=== PATIENT | male | born 1975 | race African-American/Black ===

== ENCOUNTER 2016-11-02 00:13 | Emergency (ER) | payer OTHER ==
[2016-11-02] MEDS ORDERED: methylPREDNISolone NA SUCC 125 MG/2 ML VIAL IVPB ONE (00:47)
[2016-11-02] MEDS ORDERED: MAGNESIUM SULF 50% (8.12 MEQ/2 ML-1 GM VIAL) IVPB ONE (00:47)
[2016-11-02] MEDS ORDERED: SODIUM CHLORIDE 1,000 ML IV STA (00:47)
[2016-11-02 00:49] VITALS: BMI 27.5
[2016-11-02] MEDS ORDERED: MAGNESIUM SULF 50% (8.12 MEQ/2 ML-1 GM VIAL) ONE (00:51)
[2016-11-02] MEDS ORDERED: methylPREDNISolone NA SUCC 125 MG/2 ML VIAL ONE (00:51)
[2016-11-02] MEDS: ALBUTEROL SO4 2.5/IPRATROPIUM 0.5 INH SOL 3 ML VIAL.NEB. NEB SCH ×4 (01:07→01:45)
[2016-11-02 01:16] LABS: BASOPHIL 0.7 % (0-2.0); EOSINOPHIL 19.5 % (0-4.5); MCH 28.2 pg (25.7-33.7); MCHC 32.7 g/dl (32.0-35.9); MEAN CELL VOLUME 86.2 fl (80-96); NEUTROPHILS 40.5 % (42.8-82.8); PLATELET COUNT 274 K/MM3 (134-434); RDW 13.5 % (11.9-15.9); WHITE BLOOD COUNT 10.6 K/mm3 (4.0-10.0)
[2016-11-02] MEDS ORDERED: ALBUTEROL SO4 2.5/IPRATROPIUM 0.5 INH SOL 3 ML VIAL.NEB. NEB ONE (01:34)
[2016-11-02 01:44] LABS: ANION GAP 12 (8-16); BILIRUBIN,TOTAL 0.5 mg/dL (0.2-1.0); CO2 25 mmol/L (21-32); CREATININE 1.4 mg/dL (0.7-1.3); GLUCOSE,RANDOM 92 mg/dL (74-106); SGOT/AST 30 U/L (15-37); SGPT/ALT 34 U/L (12-78); TOT PROT 7.2 g/dl (6.4-8.2)
--- NOTE | 2016-11-02 01:46 | PDOC ---
History of Present Illness - General Chief Complaint: Asthma Stated Complaint: ASTHMA Time Seen by Provider: 11/02/16 00:38 History Source: Patient Exam Limitations: No Limitations - History of Present Illness Initial Comments: 11/02/16 01:41 41yo Male patient w/ PmHx: HTN, Asthma, PNA, Chronic Sinusitis presents to ED c/ o trouble breathing x 1 week, getting worse. Patient reports he has been taking his medications, and trying to fight off his symptoms, but it has become increasingly hard to ambulate. Patient states 2 months ago, he was admitted at a hospital in the [place] and diagnosed with PNA. Associated Thick Yellow Phlegm. Pulmonary MD- Dr. Hamilton. Timing/Duration: reports: getting worse, week Severity: reports: moderate Possible Cause: Yes: illness exposure, occasional episodes Modifying Factors: improves with: albuterol inhaler, albuterol nebulizer, rest Associated Symptoms: reports: cough, sinus infection, wheezing. denies: denies symptoms, chest pain/soreness, dizziness, earache, facial pain, fever/chills, headache, lightheadedness, muscle aches, nasal congestion, nasal drainage, shortness of breath, sore throat, other Aspirin Received prior to arrival: No: no aspirin today, unknown, 81 mg x 1, 81 mg x 2, 81 mg x 3, 81 mg x 4, 325 mg x 1, provided at home, provided by EMS, provided by ED ASA Contraindications(Core Measure): No: Allergy, Other, Active Blding w/i 24 hrs., Plavix, Receiving Warfarin Past History - Travel Traveled outside of the country in the last 30 days: No Close contact w/someone who was outside of country & ill: No - Past Medical History Allergies/Adverse Reactions: Allergies Allergy/AdvReac Type Severity Reaction Status Date / Time shellfish derived Allergy Verified 11/02/16 00:49 Home Medications: Ambulatory Orders Albuterol 0.083% Nebulizer Sanaz [Ventolin 0.083% Nebulizer Soln -] 1 neb NEB Q4H PRN #1 box 11/02/16 Albuterol Sulfate Inhaler - [Ventolin HFA Inhaler -] 1 - 2 inh PO Q4H PRN #1 inhaler 11/02/16 Amlodipine Besylate/Benazepril 10 - 20 mg PO DAILY 11/02/16 Fluticasone Prop 0.05% Nasal [Flonase -] 1 - 2 spray NS DAILY 11/02/16 Levofloxacin [Levaquin] 750 mg PO DAILY #6 tablet 11/02/16 Mometasone/Formoterol [Dulera 200 Mcg/5 Mcg Inhaler] 2 inh IH BID 11/02/16 Montelukast Na [Singulair -] 10 mg PO HS 11/02/16 Prednisone [Deltasone -] 10 mg PO ASDIR #21 tab 11/02/16 Asthma: Yes HTN: Yes - Immunization History Immunization Up to Date: No - Psycho/Social/Smoking Cessation Hx Anxiety: No Suicidal Ideation: No Smoking History: Never smoked Have you smoked in the past 12 months: No Information on smoking cessation initiated: No Hx Alcohol Use: Yes Drug/Substance Use Hx: No Substance Use Type: Alcohol Review of Systems - Review of Systems Able to Perform ROS?: Yes Is the patient limited Thai proficient: No Constitutional: No: Chills, Fever Respiratory: Yes: Cough, Shortness of Breath, Wheezing Cardiac (ROS): No: Chest Pain, Palpitations, Syncope, Chest Tightness ABD/GI: No: Constipated, Diarrhea, Nausea, Poor Appetite, Poor Fluid Intake, Vomiting, Indigestion : No: Dysuria, Flank Pain, Hematuria Musculoskeletal: No: Back Pain Neurological: No: Headache, Seizure, Tingling, Tremors, Weakness, Ataxia, Dizziness All Other Systems: Reviewed and Negative *Physical Exam - Vital Signs Last Vital Signs Temp Pulse Resp BP Pulse Ox 98.0 F 91 H 22 161/99 92 L 11/02/16 00:43 11/02/16 00:43 11/02/16 00:43 11/02/16 00:43 11/02/16 00:43 - Physical Exam General Appearance: Yes: Nourished, Appropriately Dressed, Apparent Distress, Moderate Distress HEENT: positive: EOMI, ALHAJI, Normal ENT Inspection, Normal Voice, Symmetrical, TMs Normal, Pharynx Normal. negative: Nasal Congestion, Rhinorrhea, Sinus Tenderness Neck: positive: Trachea midline, Supple. negative: Stridor, Lymphadenopathy (R) , Lymphadenopathy (L) Respiratory/Chest: positive: Labored Respiration, Wheezing. negative: Lungs Clear, Normal Breath Sounds, Respiratory Distress, Accessory Muscle Use Cardiovascular: positive: Regular Rhythm, Regular Rate Gastrointestinal/Abdominal: positive: Normal Bowel Sounds, Soft. negative: Distended, Guarding, Rebound, Tenderness Musculoskeletal: positive: Normal Inspection. 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, Fully Oriented, Alert, Normal Mood/ Affect, Normal Response, Motor Strength 10/14 ED Treatment Course - LABORATORY CBC & Chemistry Diagram: 11/02/16 01:00 11/02/16 01:00 - ADDITIONAL ORDERS Additional order review: 11/02/16 01:00 RBC 4.88 MCV 86.2 MCHC 32.7 RDW 13.5 MPV 7.0 L Neutrophils % 40.5 L Lymphocytes % 34.6 Monocytes % 4.7 Eosinophils % 19.5 H Basophils % 0.7 - RADIOLOGY Radiology Studies Ordered: Category Date Time Status CHEST PA & LAT [RAD] Stat Radiology 11/02/16 00:47 Ordered - Medications Given in the ED: ED Medications Discontinued Medications Generic Name Dose Route Start Last Admin Trade Name Freq PRN Reason Stop Dose Admin Magnesium Sulfate 2 gm 11/02/16 00:47 11/02/16 01:10 Magnesium Sulfate IVPB 11/02/16 00:48 2 gm ONCE ONE Administration Methylprednisolone Sodium Succinate 125 mg 11/02/16 00:47 11/02/16 01:07 Solu-Medrol - IVPB 11/02/16 00:48 125 mg ONCE ONE Administration Progress Note - Progress Note Progress Note: DISCHARGE O2 SAT 94%. PATIENT WOULD LIKE TO BE D/C'D TO HOME. PATIENT AND PROVIDER AGREED TO TREATMENT PLAN OVER NEXT 2 DAYS WITH AGGRESSIVE NEB TX. IF SYMPTOMS PERSIST PATIENT AGREED TO RETURN FOR ADMISSION. *DC/Admit/Observation/Transfer Diagnosis at time of Disposition: Asthma exacerbation - Discharge Dispostion Disposition: HOME Condition at time of disposition: Improved Admit: No - Prescriptions Prescriptions: Prednisone [Deltasone -] 10 mg PO ASDIR #21 tab Levofloxacin [Levaquin] 750 mg PO DAILY #6 tablet Albuterol 0.083% Nebulizer Sanaz [Ventolin 0.083% Nebulizer Soln -] 1 neb NEB Q4H PRN #1 box PRN Reason: DIFF BREATHING Albuterol Sulfate Inhaler - [Ventolin HFA Inhaler -] 1 - 2 inh PO Q4H PRN #1 inhaler PRN Reason: TROUBLE BREATHING - Referrals Referrals: STAFF,NOT ON [Primary Care Provider] - Orlin Elmore MD [Staff Physician] - - Patient Instructions Printed Discharge Instructions: Asthma -- Adult Additional Instructions: FOLLOW UP WITH DR. ELMORE (PULMONARY). CALL TO SCHEDULE APPOINTMENT ESTABLISH CARE AND FOLLOW UP. TAKE MEDICATIONS PRESCRIBED. RETURN IF YOUR SYMPTOMS WORSEN OR ANY CONCERNS FOR FURTHER EVALUATION. YOU SHOULD BE DOING NEBULIZER EVERY 4 HOURS X 2 DAYS. TAKE MEDICATIONS PRESCRIBED. NO WORK UNTIL MONDAY. IF STILL FEELING SAME ON MONDAY, RETURN TO THIS ED FOR POSSIBLE ADMISSION TO HOSPITAL. Print Language: WOLOF - Post Discharge Activity Work/School Note: Back to Work
[2016-11-02 01:57] LABS: ALK PHOS 91 U/L (45-117); TROPONIN I < 0.02 ng/ml (0.00-0.05)
--- NOTE | 2016-11-02 02:25 | PDOC ---
[id number] 92 L 11/02/16 00:43 11/02/16 00:43 11/02/16 00:43 11/02/16 00:43 11/02/16 00:43 ED Treatment Course - LABORATORY CBC & Chemistry Diagram: 11/02/16 01:00 11/02/16 01:00 - ADDITIONAL ORDERS Additional order review: Laboratory Results 11/02/16 11/02/16 01:00 01:00 Sodium 141 Potassium 4.1 Chloride 104 Carbon Dioxide 25 Anion Gap 12 BUN 14 Creatinine 1.4 H Creat Clearance w eGFR 55.58 Random Glucose 92 Calcium 9.0 Total Bilirubin 0.5 AST 30 ALT 34 Alkaline Phosphatase 91 Creatine Kinase 1086 H Creatine Kinase Index 0.3 CK-MB (CK-2) 3.647 H CK-MB (CK-2) Rel Index Cancelled Troponin I < 0.02 Total Protein 7.2 Albumin 4.0 11/02/16 01:00 RBC 4.88 MCV 86.2 MCHC 32.7 RDW 13.5 MPV 7.0 L Neutrophils % 40.5 L Lymphocytes % 34.6 Monocytes % 4.7 Eosinophils % 19.5 H Basophils % 0.7 - Medications Given in the ED: ED Medications Discontinued Medications Generic Name Dose Route Start Last Admin Trade Name Freq PRN Reason Stop Dose Admin Albuterol/Ipratropium 1 amp 11/02/16 01:00 11/02/16 01:45 Duoneb - NEB 11/02/16 01:46 1 amp Q15M OSCAR Administration Sodium Chloride 1,000 mls @ 1,000 mls/hr 11/02/16 00:47 11/02/16 01:06 Normal Saline - IV 11/02/16 01:46 1,000 mls/hr ASDIR STA Administration Magnesium Sulfate 2 gm 11/02/16 00:47 11/02/16 01:10 Magnesium Sulfate IVPB 11/02/16 00:48 2 gm ONCE ONE Administration Methylprednisolone Sodium Succinate 125 mg 11/02/16 00:47 11/02/16 01:07 Solu-Medrol - IVPB 11/02/16 00:48 125 mg ONCE ONE Administration Medical Decision Making - Medical Decision Making 11/02/16 02:25 agree with care from MISSY Miller *DC/Admit/Observation/Transfer Diagnosis at time of Disposition: Asthma exacerbation - Discharge Dispostion Disposition: HOME Condition at time of disposition: Fair - Prescriptions Prescriptions: Prednisone [Deltasone -] 10 mg PO ASDIR #21 tab Levofloxacin [Levaquin] 750 mg PO DAILY #6 tablet Albuterol 0.083% Nebulizer Sanaz [Ventolin 0.083% Nebulizer Soln -] 1 neb NEB Q4H PRN #1 box PRN Reason: DIFF BREATHING Albuterol Sulfate Inhaler - [Ventolin HFA Inhaler -] 1 - 2 inh PO Q4H PRN #1 inhaler PRN Reason: TROUBLE BREATHING - Referrals Referrals: STAFF,NOT ON [Primary Care Provider] - Orlin Elmore MD [Staff Physician] - - Patient Instructions Printed Discharge Instructions: Asthma -- Adult Additional Instructions: FOLLOW UP WITH DR. ELMORE (PULMONARY). CALL TO SCHEDULE APPOINTMENT ESTABLISH CARE AND FOLLOW UP. TAKE MEDICATIONS PRESCRIBED. RETURN IF YOUR SYMPTOMS WORSEN OR ANY CONCERNS FOR FURTHER EVALUATION. YOU SHOULD BE DOING NEBULIZER EVERY 4 HOURS X 2 DAYS. TAKE MEDICATIONS PRESCRIBED. NO WORK UNTIL MONDAY. IF STILL FEELING SAME ON MONDAY, RETURN TO THIS ED FOR POSSIBLE ADMISSION TO HOSPITAL. Print Language: CHINESE - Post Discharge Activity Work/School Note: Back to Work
[2016-11-02] MEDS ORDERED: LEVOFLOXACIN 250 MG TABLET (FP) ONE (03:14)
[2016-11-02] MEDS ORDERED: LEVOFLOXACIN 500 MG TABLET (FP) ONE (03:14)
[2016-11-02 03:23] VITALS: BP 161/91; PULSE 99; TEMP 98.2
[2016-11-02] MEDS ORDERED: LEVOFLOXACIN 750 MG TABLET PO SCH (10:00)
--- NOTE | 2016-11-02 12:48 | EKG ---
Test Reason : Blood Pressure : / mmHG Vent. Rate : 102 BPM Atrial Rate : 102 BPM P-R Int : 164 ms QRS Dur : 098 ms QT Int : 364 ms P-R-T Axes : 059 022 024 degrees QTc Int : 474 ms POOR DATA QUALITY, INTERPRETATION MAY BE ADVERSELY AFFECTED SINUS TACHYCARDIA OTHERWISE NORMAL ECG NO PREVIOUS ECGS AVAILABLE Confirmed by MARIA ISABEL HERNANDEZ MD ([id number]) on 11/02/2016 12:48:14 PM Referred By: Confirmed By:MARIA ISABEL HERNANDEZ MD
== END 2016-11-02 03:27 | disposition home or self-care (01) ==
LOC: JER 00:13
PROC: 3E0F7GC Introduction of Other Therapeutic Substance into Respiratory Tract, Via Natural or Artificial Opening (ICD-10-PCS; principal; 2016-11-02)
PROC: 3E0337Z Introduction of Electrolytic and Water Balance Substance into Peripheral Vein, Percutaneous Approach (ICD-10-PCS; 2016-11-02)
PROC: 3E0333Z Introduction of Anti-inflammatory into Peripheral Vein, Percutaneous Approach (ICD-10-PCS; 2016-11-02)
PROC: 3E033GC Introduction of Other Therapeutic Substance into Peripheral Vein, Percutaneous Approach (ICD-10-PCS; 2016-11-02)
DX: J45.901 Unspecified asthma with (acute) exacerbation (principal); I10 Essential (primary) hypertension
CPT/HCPCS: 36415; 71020-TC; 80053; 82550; 82553; 84484; 85025; 93005; 93010; 99283-25

== ENCOUNTER 2017-03-09 04:11 | Emergency (ER) | payer OTHER ==
--- NOTE | 2017-03-09 04:26 | PDOC ---
History of Present Illness - General Stated Complaint: PAIN,RT EYE/HEADACHE Time Seen by Provider: 03/09/17 04:24 - History of Present Illness Initial Comments: 41 year old male with PMH of HTN, seasonal allergies, and chronic sinusitis (s/ p sinus surgery) presenting with right sided fronto-temporal headache with right sided epiphora and rhinorrhea for the past few days. He has had sinus issues in the past 03/09/17 05:40 Past History - Past Medical History Allergies/Adverse Reactions: Allergies Allergy/AdvReac Type Severity Reaction Status Date / Time shellfish derived Allergy Verified 03/09/17 04:33 Home Medications: Ambulatory Orders Albuterol 0.083% Nebulizer Sanaz [Ventolin 0.083% Nebulizer Soln -] 1 neb NEB Q4H PRN #1 box 11/02/16 Albuterol Sulfate Inhaler - [Ventolin HFA Inhaler -] 1 - 2 inh PO Q4H PRN #1 inhaler 11/02/16 Amlodipine Besylate/Benazepril 10 - 20 mg PO DAILY 11/02/16 Fluticasone Prop 0.05% Nasal [Flonase -] 1 - 2 spray NS DAILY 11/02/16 Mometasone/Formoterol [Dulera 200 Mcg/5 Mcg Inhaler] 2 inh IH BID 11/02/16 Montelukast Na [Singulair -] 10 mg PO HS 11/02/16 Amox-Tr/K Cl [Augmentin 875-125mg Tablet -] 1 tab PO BID #14 tablet 03/09/17 Naproxen [Naprosyn -] 500 mg PO BID PRN #60 tablet MDD 2 tablets 03/09/17 Reslizumab [Cinqair] 10 mg IV MONTHLY 03/09/17 Asthma: Yes HTN: Yes - Immunization History Immunization Up to Date: No - Suicide/Smoking/Psychosocial Hx Smoking History: Never smoked Have you smoked in the past 12 months: No Hx Alcohol Use: Yes Drug/Substance Use Hx: No Substance Use Type: Alcohol *DC/Admit/Observation/Transfer Diagnosis at time of Disposition: Sinusitis, Headache - Discharge Dispostion Disposition: HOME Condition at time of disposition: Improved Admit: No - Prescriptions Prescriptions: Amox-Tr/K Cl [Augmentin 875-125mg Tablet -] 1 tab PO BID #14 tablet Naproxen [Naprosyn -] 500 mg PO BID PRN #60 tablet MDD 2 tablets PRN Reason: Headache - Patient Instructions Printed Discharge Instructions: DI for Cluster Headache, DI for Sinusitis
[2017-03-09 04:35] VITALS: BP 160/107; PULSE 86; BMI 36.9
[2017-03-09] MEDS ORDERED: KETOROLAC TROMETHAMINE 60 MG/2 ML VIAL IM ONE (04:40)
[2017-03-09] MEDS ORDERED: KETOROLAC TROMETHAMINE 60 MG/2 ML VIAL ONE (04:47)
[2017-03-09] MEDS ORDERED: AMOX TR/POT CLAV 875MG/125MG TABLETS (FP) PO ONE (05:39)
[2017-03-09] MEDS ORDERED: AMOX TR/POT CLAV 875MG/125MG TABLETS (FP) ONE (05:48)
--- NOTE | 2017-03-09 06:17 | PDOC ---
Attending Attestation - Resident Resident Name: Kimberly Eng - ED Attending Attestation I have performed the following: I have examined & evaluated the patient, The case was reviewed & discussed with the resident, I agree w/resident's findings & plan, Exceptions are as noted - HPI HPI: 03/09/17 06:15 Headache for the last several days. H/o HTN and chronic sinusitis - Physicial Exam PE: 03/09/17 06:16 *Physical Exam General Appearance: Yes: Appropriately Dressed. No: Apparent Distress, Intoxicated HEENT: positive: EOMI, ALHAJI, Normal ENT Inspection, Normal Voice, TMs Normal, Pharynx Normal. negative: Pale Conjunctivae, Photophobia, Scleral Icterus (R), Scleral Icterus (L) Neck: positive: Trachea midline, Normal Thyroid, Supple. negative: Tender, Rigid, Carotid bruit, Stridor, Lymphadenopathy (R), Lymphadenopathy (L), Thyromegaly Respiratory/Chest: positive: Lungs Clear, Normal Breath Sounds. negative: Chest Tender, Respiratory Distress, Accessory Muscle Use, Labored Respiration, RES, Crackles, Rales, Rhonchi, Stridor, Wheezing, Dullness Cardiovascular: positive: Regular Rhythm, Regular Rate, S1, S2. negative: Edema , JVD, Murmur, Bradycardia, Tachycardia Vascular Pulses: Dorsalis-Pedis (R): 2+, Doralis-Pedis (L): 2+ Gastrointestinal/Abdominal: positive: Normal Bowel Sounds, Flat, Soft. negative : Tender, Organomegaly, Pulsatile Mass, Increased Bowel Sounds, Decreased BS, Distended, Guarding, Rebound, Hernia, Hepatomegaly, Spleenomegaly Lymphatic: negative: Adenopathy, Tenderness Musculoskeletal: positive: Normal Inspection. negative: CVA Tenderness, Decreased Range of Motion Extremity: positive: Normal Capillary Refill, Normal Inspection, Normal Range of Motion, Pelvis Stable. negative: Tender, Pedal Edema, Swelling, Erythema Integumentary: positive: Normal Color, Dry, Warm. 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 negative: EOM Palsy, Facial Droop, Sensory Deficit - Medical Decision Making 03/09/17 06:16 Ct scan of head showed chronic sinusitis. Pt given ABx and discharged
== END 2017-03-09 06:18 | disposition home or self-care (01) ==
LOC: JER 04:11
PROC: 3E0233Z Introduction of Anti-inflammatory into Muscle, Percutaneous Approach (ICD-10-PCS; principal; 2017-03-09)
DX: J32.9 Chronic sinusitis, unspecified (principal); R51 Headache; I10 Essential (primary) hypertension; J45.909 Unspecified asthma, uncomplicated
CPT/HCPCS: 70450-TC; 99281-25; 99282-25

== ENCOUNTER 2017-03-10 02:57 | Emergency (ER) | payer OTHER ==
[2017-03-10 03:05] VITALS: BP 148/80; PULSE 80; TEMP 98.6; BMI 36.9
--- NOTE | 2017-03-10 03:14 | PDOC ---
History of Present Illness - General History Source: Patient Exam Limitations: No Limitations - History of Present Illness Initial Comments: 03/10/17 03:34 The patient is a 41 year old male, with a significant past medical history of hypertension, asthma, seasonal allergies, nasal polyps, and chronic sinusitis(s/ p sinus surgery) who presents to the emergency department complaining of pain and swelling of the right eye since yesterday. The patient reports his symptoms initially began as a right sided headache 3 days ago. The patient reports presenting to the ED yesterday morning, where he had a head CT done, which revealed chronic sinusitis. The patient reports he was discharged on Augmentin 875 BID and Naproxen 500 BID prn. Patient reports around 15:00 yesterday, he noted a worsening right sided headache and right eye pain. Simultaneously he noted increased swelling and tearing at the right eye. He denies any trauma, changes in vision, fever, chills, or dizziness. The patient denies any recent travel or sick contacts. Allergies: NKDA Past Surgical History: Sinus surgery Social History: ETOH use. Nonsmoker. No recreational drug use. <Shani Fitzgerald - Last Filed: 03/10/17 03:34> - General History Source: Patient <Huber Patricia - Last Filed: 03/10/17 03:44> - General Chief Complaint: Eye Problem Stated Complaint: PAIN/SWELLING RT EYE Time Seen by Provider: 03/10/17 03:09 Past History <Shani Fitzgerald - Last Filed: 03/10/17 03:34> - Past Medical History Asthma: Yes HTN: Yes - Immunization History Immunization Up to Date: No - Suicide/Smoking/Psychosocial Hx Smoking History: Never smoked Have you smoked in the past 12 months: No Information on smoking cessation initiated: No Hx Alcohol Use: No Drug/Substance Use Hx: No Substance Use Type: Alcohol <Huber Patricia - Last Filed: 03/10/17 03:44> - Past Medical History Allergies/Adverse Reactions: Allergies Allergy/AdvReac Type Severity Reaction Status Date / Time shellfish derived Allergy Verified 03/10/17 03:02 Home Medications: Ambulatory Orders Albuterol 0.083% Nebulizer Sanaz [Ventolin 0.083% Nebulizer Soln -] 1 neb NEB Q4H PRN #1 box 11/02/16 Albuterol Sulfate Inhaler - [Ventolin HFA Inhaler -] 1 - 2 inh PO Q4H PRN #1 inhaler 11/02/16 Amlodipine Besylate/Benazepril 10 - 20 mg PO DAILY 11/02/16 Fluticasone Prop 0.05% Nasal [Flonase -] 1 - 2 spray NS DAILY 11/02/16 Mometasone/Formoterol [Dulera 200 Mcg/5 Mcg Inhaler] 2 inh IH BID 11/02/16 Montelukast Na [Singulair -] 10 mg PO HS 11/02/16 Amox-Tr/K Cl [Augmentin 875-125mg Tablet -] 1 tab PO BID #14 tablet 03/09/17 Naproxen [Naprosyn -] 500 mg PO BID PRN #60 tablet MDD 2 tablets 03/09/17 Reslizumab [Cinqair] 10 mg IV MONTHLY 03/09/17 Meclizine HCl 25 mg PO TID #30 tablet 03/10/17 Oxycodone HCl/Acetaminophen [Percocet 5-325 mg Tablet] 1 - 2 tab PO Q6H #20 tablet MDD 4 03/10/17 Review of Systems - Review of Systems Able to Perform ROS?: Yes Comments:: 03/10/17 03:34 CONSTITUTIONAL: Absent: fever, no chills, no fatigue EYES: Present: right eye pain/swelling/tearing. Absent: visual changes ENT: Absent: ear pain, no sore throat CARDIOVASCULAR: Absent: chest pain, no palpitations RESPIRATORY: Absent: cough, no SOB GI: Absent: abdominal pain, no nausea, no vomiting, no constipation, no diarrhea GENITOURINARY: Absent: dysuria, no frequency, no hematuria MUSCULOSKELETAL: Absent: back pain, no arthralgia, no myalgia SKIN: Absent: rash NEURO: Present: Right-sided headache <Fitzgerald,Giomilsy - Last Filed: 03/10/17 03:34> *Physical Exam - Vital Signs Last Vital Signs Temp Pulse Resp BP Pulse Ox 98.6 F 80 14 148/80 97 03/10/17 03:03 03/10/17 03:03 03/10/17 03:03 03/10/17 03:03 03/10/17 03:03 - Physical Exam Comments: 03/10/17 03:35 GENERAL: Well-appearing, well-nourished. No apparent distress. HEENT: Tearing in the right eye. Normocephalic, atraumatic. PERRL, EOM intact. Moist mucous membranes. CARDIOVASCULAR: Normal S1, S2. Regular rate and rhythm. PULMONARY: Clear to auscultation bilaterally. ABDOMEN: Soft, non-distended, non-tender. EXTREMITIES: Normal ROM in all four extremities. No gross deformities. SKIN: Warm, dry. No rash NEUROLOGICAL: No focal neurological deficits. <Shani Fitzgerald - Last Filed: 03/10/17 03:34> - Vital Signs Last Vital Signs Temp Pulse Resp BP Pulse Ox 98.6 F 80 14 148/80 97 03/10/17 03:03 03/10/17 03:03 03/10/17 03:03 03/10/17 03:03 03/10/17 03:03 <Huber Patricia - Last Filed: 03/10/17 03:44> Medical Decision Making - Medical Decision Making 03/10/17 03:44 Dr. Patricia: The scribe's documentation has been prepared under my direction and personally reviewed by me in its entirery. I confirm that the note above accurately reflects all work, treatment, procedures, and medical decision making performed by me. <Huber Patricia - Last Filed: 03/10/17 03:44> *DC/Admit/Observation/Transfer - Attestations Scribe Attestion: 03/10/17 03:35 Documentation prepared by Shani Fitzgerald, acting as director medical affairs for Huber Patricia DO. <Shani Fitzgerald - Last Filed: 03/10/17 03:34> - Discharge Dispostion Admit: No <Huber Patricia - Last Filed: 03/10/17 03:44> Diagnosis at time of Disposition: Pain, eye, right Sinusitis Qualifiers: Sinusitis location: pansinusitis Chronicity: chronic Qualified Code(s): J32.4 - Chronic pansinusitis - Discharge Dispostion Disposition: HOME Condition at time of disposition: Stable - Prescriptions Prescriptions: Meclizine HCl 25 mg PO TID #30 tablet Oxycodone HCl/Acetaminophen [Percocet 5-325 mg Tablet] 1 - 2 tab PO Q6H #20 tablet MDD 4 - Referrals Referrals: Juan Zamorano MD [Staff Physician] - - Patient Instructions Printed Discharge Instructions: DI for Eye Pain, DI for Sinusitis Additional Instructions: Please follow up with your doctor and/or the doctor referred to you here in the ER. Continue taking the previously prescribed medication and the newly prescribed. - Post Discharge Activity Forms/Work/School Notes: Back to Work
[2017-03-10] MEDS ORDERED: MECLIZINE HCL 25 MG TABLET (FP) PO STA (03:37)
[2017-03-10] MEDS ORDERED: MECLIZINE HCL 25 MG TABLET (FP) ONE (03:52)
== END 2017-03-10 03:59 | disposition home or self-care (01) ==
LOC: JER 02:57
PROC: 3E0333Z Introduction of Anti-inflammatory into Peripheral Vein, Percutaneous Approach (ICD-10-PCS; principal; 2017-03-10)
DX: J01.81 Other acute recurrent sinusitis (principal); R51 Headache
CPT/HCPCS: 99281-25

== ENCOUNTER 2018-03-17 16:17 | Inpatient (IN) | payer OTHER ==
[2018-03-17 16:27] VITALS: BMI 38.0
--- NOTE | 2018-03-17 16:50 | PDOC ---
History of Present Illness - General Chief Complaint: Chest Pain Stated Complaint: CHEST PAIN, SOB Time Seen by Provider: 03/17/18 16:28 History Source: Patient Exam Limitations: No Limitations - History of Present Illness Initial Comments: 42 yo M with a significant past medical history of ASHLEY, hypertension, asthma, seasonal allergies, nasal polyps, and chronic sinusitis(s/p sinus surgery) who presents to the emergency department with 2 days of on and off Left sided chest pain with associated radiation down his left arm associated with diaphoresis. He reports that he gets occasional episodes of palpitations, his heart races, and feels irregular. He denies any nausea or vomiting. He also reports shortness of breath with exertion for the past 2 weeks. Also reports occasional leg swelling, in past more when he was taking amlodipine. Denies any recent fevers, chills or infections, prior heart attacks, headache, back pain, abdominal pain, or leg pain. PCP: Dr. Eleazar Tavares Social hx: denies cigarette, alcohol, or illicit drug usage. Allergies: Shellfish, NKDA Past History - Past Medical History Allergies/Adverse Reactions: Allergies Allergy/AdvReac Type Severity Reaction Status Date / Time shellfish derived Allergy Verified 03/17/18 16:23 Home Medications: Ambulatory Orders Albuterol Sulfate Inhaler - [Ventolin HFA Inhaler -] 1 - 2 inh PO Q4H PRN #1 inhaler 11/02/16 Fluticasone Prop 0.05% Nasal [Flonase -] 1 - 2 spray NS DAILY 11/02/16 Mometasone/Formoterol [Dulera 200 Mcg/5 Mcg Inhaler] 2 inh IH BID 11/02/16 Montelukast Na [Singulair -] 10 mg PO HS 11/02/16 Reslizumab [Cinqair] 10 mg IV MONTHLY 03/09/17 Amlodipine Besylate [Norvasc -] 5 mg PO DAILY 03/17/18 Chlorthalidone 25 mg PO DAILY 03/17/18 Asthma: Yes COPD: No HTN: Yes - Immunization History Immunization Up to Date: No - Suicide/Smoking/Psychosocial Hx Smoking History: Never smoked Have you smoked in the past 12 months: No Hx Alcohol Use: No Drug/Substance Use Hx: No Substance Use Type: Alcohol Review of Systems - Review of Systems Able to Perform ROS?: Yes Is the patient limited Tajik proficient: No Constitutional: Yes: Diaphoresis, Weakness. No: Chills, Fever HEENTM: No: Blurred Vision, Recent change in vision, Nose Congestion Respiratory: Yes: Shortness of Breath, SOB with Exertion, Wheezing. No: Cough, Orthopnea, Productive cough Cardiac (ROS): Yes: Chest Pain, Edema, Irregular Heart Rate, Palpitations, Chest Tightness. No: Lightheadedness, Syncope ABD/GI: No: Abdominal Distended, Constipated, Diarrhea, Nausea, Poor Fluid Intake, Vomiting : No: Burning, Dysuria, Frequency, Urgency Musculoskeletal: No: Back Pain, Neck Pain Integumentary: No: Bruising, Dryness, Rash Neurological: Yes: Headache. No: Numbness, Paresthesia, Tingling, Unsteady Gait , Dizziness Psychiatric: No: Anxiety, Depression, Sleep Pattern Change Endocrine: No: Excessive Sweating, Intolerance to Cold, Intolerance to Heat Hematologic/Lymphatic: No: Anemia, Blood Clots, Easy Bruising, Bleeding Diathesis *Physical Exam - Vital Signs Last Vital Signs Temp Pulse Resp BP Pulse Ox 98.5 F 86 18 167/96 96 03/17/18 16:23 03/17/18 16:23 03/17/18 16:23 03/17/18 16:23 03/17/18 16:23 - Physical Exam General Appearance: Yes: Nourished, Appropriately Dressed. No: Apparent Distress HEENT: positive: EOMI, ALHAJI, Normal ENT Inspection, Normal Voice, Pharynx Normal. negative: Pale Conjunctivae, Nasal Congestion Neck: positive: Trachea midline, Rigid, Supple. negative: Carotid bruit, Lymphadenopathy (R), Lymphadenopathy (L) Respiratory/Chest: positive: Lungs Clear, Normal Breath Sounds. negative: Respiratory Distress, Crackles, Rales Cardiovascular: positive: Regular Rhythm, Regular Rate, S1, S2, Edema. negative : JVD, Murmur Vascular Pulses: Dorsalis-Pedis (R): 2+, Doralis-Pedis (L): 2+ Gastrointestinal/Abdominal: positive: Normal Bowel Sounds, Soft. negative: Guarding, Rebound Lymphatic: negative: Adenopathy Musculoskeletal: positive: Normal Inspection. negative: CVA Tenderness, Decreased Range of Motion, Vertebral Tenderness Extremity: positive: Normal Capillary Refill, Normal Inspection, Normal Range of Motion Integumentary: positive: Normal Color, Dry, Warm. negative: Jaundice, Pale, Diaphoresis Neurologic: positive: urologist physician II-XII NML intact, Fully Oriented, Alert, Normal Mood/ Affect, Normal Response Heart Score/ECG Review - History History: Highly suspicious - Electrocardiogram EKG: Normal - Age Age: </= 45 - Risk Factors Risk Factors Heart Score: No Hx Hypercholesterolemia, Yes Hx Hypertension, No Smoking History, No Positive family hx of cardiac disease, Yes Hx Obesity Based on the list above the patient has:: >/=3 risk factors or Hx atherosclerotic disease - Troponin Troponin: </= normal limit - Score Heart Score - Total: 4 - ECG Intrepretation Rhythm: Regular Rhythm - [place]: Normal - ST and T Non Specific ST-T Wave changes: Yes - ECG Impressions Non-specific ST Elevation: No ED Treatment Course - LABORATORY CBC & Chemistry Diagram: 03/17/18 17:17 03/17/18 17:17 - ADDITIONAL ORDERS Additional order review: Laboratory Results 03/17/18 17:17 Sodium 139 Potassium 3.5 Chloride 103 Carbon Dioxide 31 Anion Gap 6 L BUN 19 H Creatinine 1.4 H Creat Clearance w eGFR 55.31 Random Glucose 102 Calcium 9.2 Total Bilirubin 0.3 AST 36 ALT 39 Alkaline Phosphatase 74 Creatine Kinase 1037 H Troponin I < 0.02 B-Natriuretic Peptide < 5.0 L Total Protein 7.5 Albumin 3.9 03/17/18 17:17 RBC 4.81 MCV 85.0 MCHC 33.9 RDW 13.5 MPV 7.0 L Neutrophils % 40.2 L Lymphocytes % 48.4 H D Monocytes % 9.0 D Eosinophils % 0.9 D Basophils % 1.5 - RADIOLOGY Radiology Studies Ordered: Category Date Time Status CHEST PA & LAT [RAD] Stat Radiology 03/17/18 16:53 Ordered Medical Decision Making - Medical Decision Making 42 yo M with a significant past medical history of ASHLEY, hypertension, asthma, seasonal allergies, nasal polyps, and chronic sinusitis(s/p sinus surgery) who presents to the emergency department with 2 days of on and off Left sided chest pain with associated radiation down his left arm associated with diaphoresis. He reports that he gets occasional episodes of palpitations, his heart races, and feels irregular. He denies any nausea or vomiting. He also reports shortness of breath with exertion for the past 2 weeks. HEART Score: minimum 4 w/o trop. pending Trop DD includes but not limited to: ACS, unstable/stable angina, dissection, Pneumothorax, PNA, MSK pain. Plan: Ekg, cbc, cmp, bnp, trop, vbg, cxr, bedside echo, re-assess. EKG shows normal sinus rhythm and non-specific T wave abnormality. No gross changes compared to prior EKG from 2017. Bedside echo showed no obvious hypokinetic pederson. No pericardial effusion appreciated. Labs unremarkable. - trop negative - HEART score 4 - Will obtain 2nd Trop Consulted Dr. Tinoco in cardiology. He agrees the story is very suspicious and the patient should be admitted to inpatient telemetry. *DC/Admit/Observation/Transfer Diagnosis at time of Disposition: Stable angina pectoris - Discharge Dispostion Condition at time of disposition: Guarded Decision to Admit order: Yes Decision to Admit order Date/Time: Decision to Admit Order Category Date Time Status Decision to Admit to Hospital Routine Admission 03/17/18 18:15 Active - Referrals - Patient Instructions - Post Discharge Activity
[2018-03-17 17:23] LABS: BASO % 1.5 % (0-2.0); EOS % 0.9 % (0-4.5); HEMATOCRIT 40.9 % (35.4-49); HEMOGLOBIN 13.9 GM/dL (11.7-16.9); LYMPH % 48.4 % (8-40); MCH 28.8 pg (25.7-33.7); MCHC 33.9 g/dl (32.0-35.9); NEUT % 40.2 % (42.8-82.8); PLATELET COUNT 345 K/MM3 (134-434); RBC 4.81 M/mm3 (4.00-5.60); RDW 13.5 % (11.9-15.9); WHITE BLOOD COUNT 7.3 K/mm3 (4.0-10.0)
[2018-03-17 18:01] LABS: ALBUMIN 3.9 g/dl (3.4-5.0); ALK PHOS 74 U/L (45-117); ANION GAP 6 MMOL/L (8-16); BILIRUBIN,TOTAL 0.3 mg/dL (0.2-1); BLOOD UREA NITROGEN 19 mg/dL (7-18); CALCIUM 9.2 mg/dL (8.5-10.1); CHLORIDE 103 mmol/L (98-107); CO2 31 mmol/L (21-32); CREATININE 1.4 mg/dL (0.55-1.3); GLUCOSE,RANDOM 102 mg/dL (74-106); N-TERMINAL BNP < 5.0 pg/ml (5-125); POTASSIUM 3.5 mmol/L (3.5-5.1); SGOT/AST 36 U/L (15-37); SGPT/ALT 39 U/L (13-61); SODIUM 139 mmol/L (136-145); TOT PROT 7.5 g/dl (6.4-8.2)
--- NOTE | 2018-03-17 19:11 | PDOC ---
Attending Attestation - Resident Resident Name: Sukumar Head - ED Attending Attestation I have performed the following: I have examined & evaluated the patient, The case was reviewed & discussed with the resident, I agree w/resident's findings & plan, Exceptions are as noted - HPI HPI: 03/17/18 19:06 42-year-old male history of hypertension here today complaining of chest pain. Patient describes intermittent chest pain which is sharp intermittent radiating to his left shoulder he does have associated diaphoresis. Patient has obstructive sleep apnea feeling for a short of breath walking short distances anywhere from 1-2 blocks. Did recently go on a cruise but denies any history of prolonged immobilizations includes long flights. No history of PE or DVT no fevers chills or cough no leg swelling denies family history of heart disease however his father had a stroke in his 50s. Patient has not had any previous cardiac workup currently does not have any chest pain - Physicial Exam PE: 03/17/18 19:09 Awake alert no acute distress lungs are clear bilaterally heart is regular without any murmurs rubs or gallops abdomen is soft and nontender skin is warm and dry. Extremities are warm and well-perfused there is no noted edema pulses are symmetric bilaterally. Neurologically patient is alert and oriented 3 - Medical Decision Making 03/17/18 19:10 Differential diagnosis includes angina, pericarditis, pneumonia, other lung process, patient does not currently have any risk factors for PE plan focus ED ultrasound limited of the heart will obtain an EKG patient aspirin chest x-ray labs including troponin, CBC and CMP. Patient has a high risk story and family history of vascular disease with a father with a stroke and young age therefore will likely admit patient to telemetry. Will discuss cardiology actively This ED ultrasound TTE performed, indication chest pain. Parasternal long short E couple and subxiphoid views were obtained patient overall had good contractility. No pericardial effusion was noted. No RV dilation or strain pattern noted. Impression: Normal TTE Heart Score/ECG Review #1 General ECG Interpretation: Sinus Rhythm, Normal Rate (88), Normal Intervals, No acute ischemic changes Compared to previous ECG there are: Other (no acute change comparison 11/02/16)
[2018-03-17] MEDS ORDERED: ASPIRIN 325 MG TABLET PO ONE (19:13)
[2018-03-17] MEDS ORDERED: ASPIRIN 325 MG TABLET ONE (19:17)
[2018-03-17] MEDS ORDERED: ALBUTEROL SO4 8 GM HFA INHALER IH PRN ×4 (19:46→19:55)
--- NOTE | 2018-03-17 19:47 | PN ---
Teaching Attending Note Name of Resident: Alan Cramer ATTENDING PHYSICIAN STATEMENT I saw and evaluated the patient. I reviewed the resident's note and discussed the case with the resident. I agree with the resident's findings and plan as documented. SUBJECTIVE: Patient is a 42 year old man with a PMH of ASHLEY, hypertension, asthma, seasonal allergies, nasal polyps, and chronic sinusitis(s/p sinus surgery) who presents to the ER with 2 days of on and off Left sided chest pain with associated radiation down his left arm associated with diaphoresis. He reports that he gets occasional episodes of palpitations, his heart races, and feels irregular. He denies any nausea or vomiting. He also reports shortness of breath with exertion for the past 2 weeks. 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 Also reports occasional leg swelling, in past more when he was taking amlodipine. Denies any recent fevers, chills or infections, prior heart attacks, headache, back pain, abdominal pain, or leg pain. OBJECTIVE: Alert Vital Signs Period Temp Pulse Resp BP Sys/Ramirez Pulse Ox Last 24 Hr 98.3 F-98.5 F 64-86 18-18 137-167/83-96 96-98 HEENT: No Jaundice, eye redness or discharge, PERRLA, EOMI. Normocephalic, atraumatic. External ears are normal and hearing is grossly intact. No nasal discharge. Neck: Supple, nontender. No palpable adenopathy or thyromegaly. No JVD Chest: Good effort. Clear to auscultation and percussion. Heart: Regular. No S3, rub or murmur Abdomen: Not distended, soft, nontender and no HSM. No rebound or guarding. Normoactive bowel sounds. Ext: Peripheral pulses intact. No leg edema. Skin: Warm and dry. No petechiae, rash or ecchymosis. Neuro: Alert. Oriented x3. CN 2-12 grossly intact. Sensation grossly intact in all four extremities and DTR are symmetric. Home Medications Medication Instructions Recorded Albuterol Sulfate Inhaler - 1 - 2 inh PO Q4H PRN #1 inhaler 11/02/16 [Ventolin HFA Inhaler -] Fluticasone Prop 0.05% Nasal 1 - 2 spray NS DAILY 11/02/16 [Flonase -] Mometasone/Formoterol [Dulera 200 2 inh IH BID 11/02/16 Mcg/5 Mcg Inhaler] Montelukast Na [Singulair -] 10 mg PO HS 11/02/16 Reslizumab [Cinqair] 10 mg IV MONTHLY 03/09/17 Amlodipine Besylate [Norvasc -] 5 mg PO DAILY 03/17/18 Chlorthalidone 25 mg PO DAILY 03/17/18 Abnormal Lab Results 03/17/18 03/17/18 17:17 17:17 MPV 7.0 L Neutrophils % 40.2 L Lymphocytes % 48.4 H D Anion Gap 6 L BUN 19 H Creatinine 1.4 H Creatine Kinase 1037 H CK-MB (CK-2) 4.3 H B-Natriuretic Peptide < 5.0 L ASSESSMENT AND PLAN: 1. Chest pain - Has risk factors for CAD. No changes of ACS on EKG and troponin is negative and no acute pathology on CXR. Admit to telemetry to rule out ACS, give aspirin, get ECHO, fasting lipids and adjust his BP medications to attain normotension. 2. JORDAN? - Based on his weight, serum creatinine of 1.4 mg/dL may be "normal" for him, but since he has multiple risk factors for kidney disease, a basic nephrologic work up is needed. No obvious etiology for rhabdomyolysis. Get UA and kidney sonogram. Avoid nephrotoxic agents such as NSAIDS, aminoglycosides, contrast dyes and certain Alternative medicine products. Encourage liberal oral fluid intake to correct any underlying dehydration and rhabdomyolysis and trend CPK. Would withhold aggressive IV fluids for now pending ECHO. Urine toxicology. 3. Obesity - Will provide patient all the necessary assistance, counseling and positive reinforcement to facilitate weight loss. Consult power equipment mechanics instructor. 4. DVT prophylaxis - Heparin 5000u sq tid. 5. Advance directives - Full code
--- NOTE | 2018-03-17 19:51 | HP ---
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 He then started to develop left sided chest pain which evetually radiated down the left are. No radiation to the jaw. He also started to become diaphoretic. He went home to relax that night and since his first episode he has been having these episodes multiple times. He decided he was going to work the rest of his work week and then come to the hospital for evaluation, which is what he did. He states all his symptoms, SOB, Palpitations, dyspnea on exertion, diaphoresis and chest pain all happen irrespective of each other. These symptoms happen randomly and are not necessarily always associated with each other. Currently he is comfortbale and aymptomatic but he endorses that if he was to exert himself he would likely get short of breath and/or have chest pain. Patient denies having a cardiac history other than HTN. He has a strong family history. His father in his 50's from a stroke and his uncle from a stroke in his 60's. His mother had HTN. He denies nausea, vomiting, fever chills, lower extremity edema, numbness or tingling, GI or symptoms. Patient endorses he took his BP at one point at home and it was 166/100 with a HR of 110. ER course was notable for: (1)EKG CXR (2)Labs, Aspirin (3)Bedside Echo done by Dr. Bryson not impressive for any wall motion abnormalities Recent Travel:Denies PAST MEDICAL HISTORY:As above PAST SURGICAL HISTORY:Nasal polypectomy x2 Social History: Smoking:Denies Alcohol:Denies Drugs: Denies Family History:Mother and father both had HTN. Father in 50's from stroke. Uncle in 60's from stroke Allergies Multiple allergens shellfish derived Allergy (Verified 10/06/18 16:23) HOME MEDICATIONS:Verified by Dr. Cramer with patient on pharmacy Application on Phone Home Medications Medication Instructions Recorded Albuterol Sulfate Inhaler - 1 - 2 inh PO Q4H PRN #1 inhaler 11/02/16 [Ventolin HFA Inhaler -] Fluticasone Prop 0.05% Nasal 1 - 2 spray NS DAILY 11/02/16 [Flonase -] Mometasone/Formoterol [Dulera 200 2 inh IH BID 11/02/16 Mcg/5 Mcg Inhaler] Montelukast Na [Singulair -] 10 mg PO HS 11/02/16 Reslizumab [Cinqair] 10 mg IV MONTHLY 03/09/17 Amlodipine Besylate [Norvasc -] 5 mg PO DAILY 03/17/18 Azelastine HCl 2 sprays NS BID 03/17/18 Budesonide [Pulmicort 0.5 mg 1 neb NEB BID 03/17/18 Nebulizer -] Chlorthalidone 25 mg PO DAILY 03/17/18 REVIEW OF SYSTEMS CONSTITUTIONAL: Absent: fever, chills, generalized weakness, malaise, loss of appetite, weight change Present:diaphoresis HEENT: Absent: rhinorrhea, nasal congestion, throat pain, throat swelling, difficulty swallowing, mouth swelling, ear pain, eye pain, visual changes CARDIOVASCULAR: Absent: syncope, lightheadedness, peripheral edema Present: chest pain, palpitations, irregular heart rate RESPIRATORY: Absent: cough, orthopnea, wheezing, stridor, hemoptysis Present: shortness of breath, dyspnea with exertion GASTROINTESTINAL: Absent: abdominal pain, abdominal distension, nausea, vomiting, diarrhea, constipation, melena, hematochezia GENITOURINARY: Absent: dysuria, frequency, urgency, hesitancy, hematuria, flank pain, genital pain MUSCULOSKELETAL: Absent: myalgia, arthralgia, joint swelling, back pain, neck pain SKIN: Absent: rash, itching, pallor HEMATOLOGIC/IMMUNOLOGIC: Absent: easy bleeding, easy bruising, lymphadenopathy, frequent infections ENDOCRINE: Absent: unexplained weight gain, unexplained weight loss, heat intolerance, cold intolerance NEUROLOGIC: Absent: headache, focal weakness or paresthesias, dizziness, unsteady gait, seizure, mental status changes, bladder or bowel incontinence PSYCHIATRIC: Absent: anxiety, depression, suicidal or homicidal ideation, hallucinations. PHYSICAL EXAMINATION Vital Signs - 24 hr 03/17/18 03/17/18 16:23 19:35 Temperature 98.5 F 98.3 F Pulse Rate 86 Pulse Rate [ 64 Apical] Respiratory 18 18 Rate Blood Pressure 167/96 Blood Pressure 137/83 [Right Arm] O2 Sat by Pulse 96 98 Oximetry (%) GENERAL: Awake, alert, and fully oriented, in no acute distress. HEAD: Normal with no signs of trauma. EYES: Pupils equal, round and reactive to light, extraocular movements intact, sclera anicteric, conjunctiva clear. EARS, NOSE, THROAT: Ears normal, nares patent, oropharynx clear without exudates. Moist mucous membranes. NECK: Normal range of motion, supple without lymphadenopathy, JVD, or masses. LUNGS: Breath sounds equal, clear to auscultation bilaterally. No wheezes, and no crackles. No accessory muscle use. HEART: Regular rate and rhythm, normal S1 and S2 without murmur, rub or gallop. ABDOMEN: Soft, obese, nontender, not distended, normoactive bowel sounds, no guarding, no rebound, no masses. MUSCULOSKELETAL: Normal range of motion at all joints. No bony deformities or tenderness. No CVA tenderness. UPPER EXTREMITIES: warm, well-perfused. No peripheral edema. LOWER EXTREMITIES: warm, well-perfused. No calf tenderness. No peripheral edema. NEUROLOGICAL: Cranial nerves II-XII intact. Normal speech. PSYCHIATRIC: Cooperative. Good eye contact. Appropriate mood and affect. SKIN: Warm, dry, normal turgor, no rashes or lesions noted, normal capillary refill. Laboratory Results - last 24 hr 03/17/18 03/17/18 17:17 17:17 WBC 7.3 RBC 4.81 Hgb 13.9 Hct 40.9 MCV 85.0 MCH 28.8 MCHC 33.9 RDW 13.5 Plt Count 345 D MPV 7.0 L Absolute Neuts (auto) 2.9 Neutrophils % 40.2 L Lymphocytes % 48.4 H D Monocytes % 9.0 D Eosinophils % 0.9 D Basophils % 1.5 Nucleated RBC % 0 Sodium 139 Potassium 3.5 Chloride 103 Carbon Dioxide 31 Anion Gap 6 L BUN 19 H Creatinine 1.4 H Creat Clearance w eGFR 55.31 Random Glucose 102 Calcium 9.2 Total Bilirubin 0.3 AST 36 ALT 39 Alkaline Phosphatase 74 Creatine Kinase 1037 H Creatine Kinase Index 0.4 CK-MB (CK-2) 4.3 H Troponin I < 0.02 B-Natriuretic Peptide < 5.0 L Total Protein 7.5 Albumin 3.9 EKG: NSR Nonspecific ST-T changes CXR clear on my read. No evidence of pleural effusions or pulmonary vascular congestion ASSESSMENT/PLAN: 42M with history of ASHLEY, HTN, Asthma, Chronic sinusitis, presents to the hospital with a few day history of waxing and waning chest pain, palpitations, diaphoresis, shortness of breath, and dyspnea on exertion. Cardiac:Patient has been having waxing and waning chest pain, palpitations, diaphoresis, shortness of breath, and dyspnea on exertion. Possible patient may be having SVT vs other arrythmias. Possible patient may have CAD given history and risk factors Needs to r/o ACS will admit to inpatient telemetry continuous cardiac monitoring consult cardiology trend troponin Echo Encourage PO fluid intake If no reason found for his symptoms patient may need outpatient monitoring holter, loop, etc UA Give aspirin fasting Lipid Panel HbA1C HTN: Seems uncontrolled Will continue to trend BP with home meds to get a better idea of his BP trends and adjust PRN Continue Norvasc Continue chlorthalidone elevated CK: Do not suspect rhabdomyolysis will get UA elevated Cr: May be normal in this patient given his size do not suspect renal injury as creatinine seems to be at baseline Cr was also 1.4 last year no further work up Eosinophillic asthma: Continue Ventolin PRN continue Pulmicort contiue outpatient Reslizumab monthly infusions Obesity: Counselled on losing weight and healthier eating habits seasonal allergies: Continue Singulair chronic sinusitis: Continue flonase ASHLEY FEN: no IVF no electrolyte issues Sodium controlled diet PPx: Lovenox/SCDs no indication for PPI Early ambulation Case discussed with Dr. Elena at bedside. all questions answered Visit type - Emergency Visit Emergency Visit: Yes ED Registration Date: 03/17/18 Care time: The patient presented to the Emergency Department on the above date and was hospitalized for further evaluation of their emergent condition. - New Patient This patient is new to me today: Yes Date on this admission: 03/17/18 - Critical Care Critical Care patient: No
[2018-03-17 20:20] LABS: VENOUS PC02 47.7 mmHg (38-52); VENOUS PH 7.39 (7.32-7.42); VENOUS PO2 45.8 mmHg (28-48)
[2018-03-17] MEDS ORDERED: PT OWN MED DRAWER 7, Y5N ONE (21:30)
[2018-03-17] MEDS: MONTELUKAST NA 10 MG TABLET PO SCH (21:35)
[2018-03-17] MEDS: BUDESONIDE 0.5 MG/2 ML INH SUSP VIAL NEB SCH (21:47)
[2018-03-18] MEDS ORDERED: ALBUTEROL SO4 8 GM HFA INHALER IH PRN (01:54)
[2018-03-18 06:01] LABS: HEMOGLOBIN 13.5 GM/dL (11.7-16.9); MCH 28.4 pg (25.7-33.7); MCHC 33.7 g/dl (32.0-35.9); MEAN CELL VOLUME 84.1 fl (80-96); MEAN PLT VOLUME 7.1 fl (7.5-11.1); PLATELET COUNT 292 K/MM3 (134-434); RBC 4.76 M/mm3 (4.00-5.60); RDW 13.3 % (11.9-15.9); WHITE BLOOD COUNT 7.4 K/mm3 (4.0-10.0)
[2018-03-18 06:29] LABS: ALBUMIN 3.5 g/dl (3.4-5.0); ALK PHOS 65 U/L (45-117); ANION GAP 8 MMOL/L (8-16); BILIRUBIN,TOTAL 0.6 mg/dL (0.2-1); BLOOD UREA NITROGEN 14 mg/dL (7-18); CALCIUM 8.7 mg/dL (8.5-10.1); CHLORIDE 104 mmol/L (98-107); CHOLESTEROL 205 mg/dL (50-200); CO2 31 mmol/L (21-32); CREATININE 1.3 mg/dL (0.55-1.3); GLUCOSE,RANDOM 98 mg/dL (74-106); HDL CHOLESTEROL 54 mg/dL (40-60); MAGNESIUM 1.9 mg/dL (1.8-2.4); PHOSPHOROUS 3.6 mg/dL (2.5-4.9); POTASSIUM 3.4 mmol/L (3.5-5.1); SGOT/AST 30 U/L (15-37); SGPT/ALT 35 U/L (13-61); SODIUM 143 mmol/L (136-145); TOT PROT 6.6 g/dl (6.4-8.2); TRIGLYCERIDES 82 mg/dL (0-150)
[2018-03-18] MEDS ORDERED: SODIUM CHLORIDE 1,000 ML IV SCH (07:30)
[2018-03-18] MEDS: BUDESONIDE 0.5 MG/2 ML INH SUSP VIAL NEB SCH ×2 (08:45→20:44)
[2018-03-18] MEDS ORDERED: PT OWN MED DRAWER 7, Y5N ONE ×2 (09:45→11:27)
[2018-03-18] MEDS: amLODIPine BESYLATE 5 MG TABLET (FP) PO SCH (09:46)
[2018-03-18] MEDS: ENOXAPARIN NA (PORCINE) 40 MG/0.4 ML DISP.SYRIN SQ SCH (09:46)
[2018-03-18] MEDS ORDERED: FLU VACCINE QUAD 60 MCG/0.5 ML (MDV 18-19) IM ONE (10:00)
[2018-03-18] MEDS ORDERED: CHLORTHALIDONE 25 MG TABLET PO SCH (10:00)
[2018-03-18] MEDS ORDERED: POTASSIUM CHLORIDE TABS 20 MEQ TABLET.ER (FP) PO ONE (12:01)
--- NOTE | 2018-03-18 12:19 | PN ---
Progress Note (short form) - Note Progress Note: Subjective: reports 3 episodes of CP since Monday , that lasted 2-3 min , one radiated to L arm. all episodes happened at rest . father with stroke at 44 y/o. no CAD h /o in family or personal reports uncontrolled BP . norvasc was decreased due to Le edema . avarage BP At home 150s /105 Objective: Vital Signs: Last Vital Signs Temp Pulse Resp BP Pulse Ox 98 F 73 17 124/82 98 03/18/18 07:00 03/18/18 07:00 03/18/18 07:00 03/18/18 07:00 03/18/18 08:31 Laboratory Results - last 24 hr 03/17/18 03/17/18 03/17/18 17:17 17:17 17:17 WBC 7.3 RBC 4.81 Hgb 13.9 Hct 40.9 MCV 85.0 MCH 28.8 MCHC 33.9 RDW 13.5 Plt Count 345 D MPV 7.0 L Absolute Neuts (auto) 2.9 Neutrophils % 40.2 L Lymphocytes % 48.4 H D Monocytes % 9.0 D Eosinophils % 0.9 D Basophils % 1.5 Nucleated RBC % 0 VBG pH 7.39 POC VBG pCO2 47.7 POC VBG pO2 45.8 Mixed VBG HCO3 28.4 H Sodium 139 Potassium 3.5 Chloride 103 Carbon Dioxide 31 Anion Gap 6 L BUN 19 H Creatinine 1.4 H Creat Clearance w eGFR 55.31 Random Glucose 102 Hemoglobin A1c % Calcium 9.2 Phosphorus Magnesium Total Bilirubin 0.3 AST 36 ALT 39 Alkaline Phosphatase 74 Creatine Kinase 1037 H Creatine Kinase Index 0.4 CK-MB (CK-2) 4.3 H Troponin I < 0.02 B-Natriuretic Peptide < 5.0 L Total Protein 7.5 Albumin 3.9 Triglycerides Cholesterol Total LDL Cholesterol HDL Cholesterol 03/18/18 03/18/18 03/18/18 00:30 05:30 05:30 WBC 7.4 RBC 4.76 Hgb 13.5 Hct 40.0 MCV 84.1 MCH 28.4 MCHC 33.7 RDW 13.3 Plt Count 292 MPV 7.1 L Absolute Neuts (auto) Neutrophils % Lymphocytes % Monocytes % Eosinophils % Basophils % Nucleated RBC % VBG pH POC VBG pCO2 POC VBG pO2 Mixed VBG HCO3 Sodium 143 Potassium 3.4 L Chloride 104 Carbon Dioxide 31 Anion Gap 8 BUN 14 Creatinine 1.3 Creat Clearance w eGFR > 60 Random Glucose 98 Hemoglobin A1c % Calcium 8.7 Phosphorus 3.6 Magnesium 1.9 Total Bilirubin 0.6 AST 30 ALT 35 Alkaline Phosphatase 65 Creatine Kinase 883 H 884 H Creatine Kinase Index 0.3 0.3 CK-MB (CK-2) 3.4 3.4 Troponin I < 0.02 < 0.02 B-Natriuretic Peptide Total Protein 6.6 Albumin 3.5 Triglycerides 82 Cholesterol 205 H Total LDL Cholesterol 132 H HDL Cholesterol 54 03/18/18 05:30 WBC RBC Hgb Hct MCV MCH MCHC RDW Plt Count MPV Absolute Neuts (auto) Neutrophils % Lymphocytes % Monocytes % Eosinophils % Basophils % Nucleated RBC % VBG pH POC VBG pCO2 POC VBG pO2 Mixed VBG HCO3 Sodium Potassium Chloride Carbon Dioxide Anion Gap BUN Creatinine Creat Clearance w eGFR Random Glucose Hemoglobin A1c % 6.7 H Calcium Phosphorus Magnesium Total Bilirubin AST ALT Alkaline Phosphatase Creatine Kinase Creatine Kinase Index CK-MB (CK-2) Troponin I B-Natriuretic Peptide Total Protein Albumin Triglycerides Cholesterol Total LDL Cholesterol HDL Cholesterol Physical Exam: NAD, CV: RRR, no MRG , no JVD Lungs: CTAB Ext : no edema Imaging: cxray: Nl Assessment/Plan: 42 y/o man with h/o uncontrolled HTn, Asthma, ASHLEY, and chronic sinusitis who presented with few episodes of CP 1- CP : atypical, could be MS. but his family hx is concerning and the fact that it happened at rest. EKG reviewed. flat TW in lateral leads. trop neg x 3 - check another EKG - might need a non urgent sress test - card eval pending - echo pending - need better BP control 2- HTN urgency: - hold chlorthalidone while hydrating - add losartan 50 - cont norvasc 5. pt delcined norvasc increase due to LE edema 3- mild Rhabdo : cont IVF . 4- Linden: cr improved . cr at base line monitor on Losartan 5- Asthma, cont Nebs Visit type - Emergency Visit Emergency Visit: Yes ED Registration Date: 03/17/18 Care time: The patient presented to the Emergency Department on the above date and was hospitalized for further evaluation of their emergent condition. - New Patient This patient is new to me today: No - Critical Care Critical Care patient: No
[2018-03-18] MEDS: LOSARTAN POTASSIUM 50 MG TABLET (FP) PO SCH (13:47)
[2018-03-18] MEDS: FLUTICASONE PROP 0.05% 16 GM NASAL SPRAY NS SCH (13:48)
--- NOTE | 2018-03-18 14:23 | CON.CARD ---
Consult Consult Specialty:: Cardiology Referred by:: Dr. 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 The patient has been experiencing intermittent predominantly non-exertional left sided chest pain with radiation to his left arm. He has good exercise tolerance in spite of exertional SOB and palpitation. He has no exertional chest pain. His BP was elevated with mild sinus tachycardia in ED. ID ruled out. No acute ECG changes (III and aVF flattening T waves). Bedside Echo in ED done by Dr. Bryson showed no evidence of wall motion abnormalities. - History Source History Provided By: Patient Limitations to Obtaining History: No Limitations - Alcohol/Substance Use Hx Alcohol Use: No - Smoking History Smoking history: Never smoked Have you smoked in the past 12 months: No Home Medications - Allergies Allergies/Adverse Reactions: Allergies Allergy/AdvReac Type Severity Reaction Status Date / Time shellfish derived Allergy Verified 03/17/18 16:23 - Home Medications Home Medications: Ambulatory Orders Albuterol Sulfate Inhaler - [Ventolin HFA Inhaler -] 1 - 2 inh PO Q4H PRN #1 inhaler 11/02/16 Fluticasone Prop 0.05% Nasal [Flonase -] 1 - 2 spray NS DAILY 11/02/16 Mometasone/Formoterol [Dulera 200 Mcg/5 Mcg Inhaler] 2 inh IH BID 11/02/16 Montelukast Na [Singulair -] 10 mg PO HS 11/02/16 Reslizumab [Cinqair] 10 mg IV MONTHLY 03/09/17 Amlodipine Besylate [Norvasc -] 5 mg PO DAILY 03/17/18 Azelastine HCl 2 sprays NS BID 03/17/18 Budesonide [Pulmicort 0.5 mg Nebulizer -] 1 neb NEB BID 03/17/18 Chlorthalidone 25 mg PO DAILY 03/17/18 Review of Systems - Review of Systems Constitutional: reports: No Symptoms Eyes: reports: No Symptoms HENT: reports: No Symptoms Neck: reports: No Symptoms Cardiovascular: reports: Chest Pain, Palpitations Respiratory: reports: SOB on Exertion Gastrointestinal: reports: No Symptoms Genitourinary: reports: No Symptoms Breasts: reports: No Symptoms Reported Musculoskeletal: reports: No Symptoms Integumentary: reports: No Symptoms Neurological: reports: No Symptoms Endocrine: reports: No Symptoms Hematology/Lymphatic: reports: No Symptoms Psychiatric: reports: No Symptoms Vital Signs: Vital Signs Temperature 98 F 03/18/18 07:00 Pulse Rate 79 03/18/18 11:00 Respiratory Rate 16 03/18/18 11:00 Blood Pressure 149/82 03/18/18 11:00 O2 Sat by Pulse Oximetry (%) 98 03/18/18 08:31 General: Well developed. Obese. No acute distress. Head: Normocephalic. Atraumatic, Eyes: PERRLA, EOMI. Sclerae anicteric. Conjunctivae clear. Neck: Supple. No JVD. No bruits. Heart: Normal S1, S2: Regular rhythm and rate. No murmur. No gallop or rub. Lungs: Symmetrical air entry. Clear to auscultation. No crackles. No wheezing or rhonchi. Abdomen: Soft. Bowel sound positive. Non tender. No masses. Extremities: No edema. No clubbing or cyanosis. PD 2+, equal bilaterally. Neuro: Intact, no focal findings. AAO X3. 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 ID ruled out. No acute ECG changes. 1) Chest pain with atypical features, likely not acute coronary syndrome. But patient has risk factors of CAD. Treadmill nuclear stress test for risk stratification. May use aspirin 81 mg daily. 2) Hypertension: BP is mildly elevated. Add metoprolol succinate 50 mg daily. We will follow with you.
[2018-03-18] MEDS: ASPIRIN COATED 81 MG TABLET.EC PO SCH (19:49)
[2018-03-18] MEDS: MONTELUKAST NA 10 MG TABLET PO SCH (21:32)
[2018-03-19 07:11] LABS: ANION GAP 4 MMOL/L (8-16); BLOOD UREA NITROGEN 13 mg/dL (7-18); CALCIUM 8.6 mg/dL (8.5-10.1); CHLORIDE 107 mmol/L (98-107); CO2 30 mmol/L (21-32); CREATININE 1.2 mg/dL (0.55-1.3); GLUCOSE,RANDOM 108 mg/dL (74-106); MAGNESIUM 2.1 mg/dL (1.8-2.4); POTASSIUM 3.8 mmol/L (3.5-5.1); SODIUM 141 mmol/L (136-145)
[2018-03-19] MEDS: BUDESONIDE 0.5 MG/2 ML INH SUSP VIAL NEB SCH ×2 (07:45→20:15)
--- NOTE | 2018-03-19 09:12 | PN ---
Physical Exam: SUBJECTIVE: Patient seen and examined at bedside this morning. He denies any acute complaints overnight. Denies chest pain, palpitations. Denies fevers, chills, headache, shortness of breath, cough, abdominal pain, nausea, vomiting, diarrhea, OBJECTIVE: Vital Signs Period Temp Pulse Resp BP Sys/Ramirez Pulse Ox Last 24 Hr 98.1 F-98.4 F 50-80 12-18 112-149/82-90 96-98 GENERAL: The patient is awake, alert, and fully oriented, in no acute distress. HEAD: Normal with no signs of trauma. EYES: PERRL, extraocular movements intact, sclera anicteric, conjunctiva clear. ENT: Oropharynx clear without exudates, moist mucous membranes. NECK: Trachea midline, full range of motion, supple. LUNGS: Good inspirator effort and air entry. Breath sounds equal, clear to auscultation bilaterally. No wheezes, no crackles. No accessory muscle use. HEART: Regular rate and rhythm, S1, S2 auscultated without murmur, rub or gallop. ABDOMEN: Soft, nontender, nondistended. Normoactive bowel sounds, no guarding, no rebound tenderness. No hepatosplenomegaly. EXTREMITIES: 2+ radial and dorsalis pedis pulses, warm, well-perfused, no edema. NEUROLOGICAL: Cranial nerves II through XII grossly intact. Normal speech. PSYCH: Mod and affect appropriate upon my encounter this morning. SKIN: Warm, dry Laboratory Results - last 24 hr 03/19/18 05:30 Sodium 141 Potassium 3.8 Chloride 107 Carbon Dioxide 30 Anion Gap 4 L BUN 13 Creatinine 1.2 Creat Clearance w eGFR > 60 Random Glucose 108 H Calcium 8.6 Phosphorus 3.0 Magnesium 2.1 Creatine Kinase 670 H Creatine Kinase Index 0.3 CK-MB (CK-2) 2.4 Active Medications Generic Name Dose Route Start Last Admin Trade Name Freq PRN Reason Stop Dose Admin Albuterol Sulfate 1 puff 03/18/18 01:54 Ventolin Hfa Inhaler - IH Q4H PRN SHORTNESS OF BREATH Albuterol Sulfate 2 puff 03/17/18 19:55 03/17/18 21:37 Ventolin Hfa Inhaler - IH 2 puff Q4H PRN Administration SHORTNESS OF BREATH Amlodipine Besylate 5 mg 03/18/18 10:00 03/18/18 09:46 Norvasc - PO 5 mg DAILY OSCAR Administration Aspirin 81 mg 03/18/18 18:30 03/18/18 19:49 Ecotrin - PO 81 mg DAILY OSCAR Administration Budesonide 1 amp 03/17/18 20:00 03/19/18 07:45 Pulmicort 0.5 Mg Nebulizer - NEB 1 amp RBID OSCAR Administration Enoxaparin Sodium 40 mg 03/18/18 10:00 03/18/18 09:46 Lovenox - SQ 40 mg DAILY OSCAR Administration Fluticasone Propionate 2 spray 03/18/18 10:00 03/18/18 13:48 Flonase - NS 2 sprays DAILY OSCAR Administration Losartan Potassium 50 mg 03/18/18 12:15 03/18/18 13:47 Cozaar - PO 50 mg DAILY OSCAR Administration Montelukast Sodium 10 mg 03/17/18 22:00 03/18/18 21:32 Singulair - PO 10 mg HS OSCAR Administration ASSESSMENT/PLAN: Patient is a 42 year old male with history of hypertension, obstructive seep apnea (using BiPAP at night), eosinophilic asthma (receiving infusion monoclonal antibody) presents with complaint of chest pain, shortness of breath , and palpitations. Chest pain -Cardiac ECHO: LV normal size, mild concentric LVH, systolic function normal with EF 65-70%. Normal RV function. -Nuclear stress test: Small- moderate area reversible inferior (from base to apex) ischemia. EF 56%. Per Cardiology, patient for transfer to [facility] for cardiac catheterization. -Asa 81mg daily -Lipitor 40mg PO HS -Metoprolol XL 12.5 mg PO daily Hypertension -Losartan 50mg PO daily -Chlorthalidone 25mg PO daily -Amlodipine 5mg -Metoprolol Xl 12.5mg PO daily Asthma -Budenosine 1 amp BID -Flonase 2 puffs NS daily -Singulair 10mg PO HS -Albuterol 1puff Q4H PRN FEN -No IV fluids. Will encourage judicious oral hydration -Follow CMP -Regular diet Prophylaxis -Lovenox 40mg subq TID Disposition -Continue care in ICU telemetry, pending transfer to [facility] for cardiac catheterization. Visit type - Emergency Visit Emergency Visit: Yes ED Registration Date: 03/17/18 Care time: The patient presented to the Emergency Department on the above date and was hospitalized for further evaluation of their emergent condition. - New Patient This patient is new to me today: Yes Date on this admission: 03/19/18 - Critical Care Critical Care patient: Yes Total Critical Care Time (in minutes): 35 Critical Care Statement: The care of this patient involved high complexity decision making to prevent further life threatening deterioration of the patient 's condition and/or to evaluate & treat vital organ system(s) failure or risk of failure. - Discharge Referral Referred to [facility] No
[2018-03-19] MEDS: ASPIRIN COATED 81 MG TABLET.EC PO SCH (09:29)
[2018-03-19] MEDS: amLODIPine BESYLATE 5 MG TABLET (FP) PO SCH (09:30)
[2018-03-19] MEDS: ENOXAPARIN NA (PORCINE) 40 MG/0.4 ML DISP.SYRIN SQ SCH (09:30)
[2018-03-19] MEDS: LOSARTAN POTASSIUM 50 MG TABLET (FP) PO SCH (09:30)
--- NOTE | 2018-03-19 10:42 | EKG ---
Test Reason : Blood Pressure : / mmHG Vent. Rate : 063 BPM Atrial Rate : 063 BPM P-R Int : 194 ms QRS Dur : 096 ms QT Int : 420 ms P-R-T Axes : 036 -02 -14 degrees QTc Int : 429 ms NORMAL SINUS RHYTHM NORMAL ECG WHEN COMPARED WITH ECG OF 17-MAR-2018 16:19, NO SIGNIFICANT CHANGE WAS FOUND Confirmed by MARTELL BULLARD MD ([id number]) on 03/19/2018 10:42:03 AM Referred By: Alma PITT Confirmed By:MARTELL BULLARD MD
--- NOTE | 2018-03-19 11:09 | EKG ---
Test Reason : Blood Pressure : / mmHG Vent. Rate : 088 BPM Atrial Rate : 088 BPM P-R Int : 178 ms QRS Dur : 096 ms QT Int : 380 ms P-R-T Axes : 046 022 -08 degrees QTc Int : 459 ms NORMAL SINUS RHYTHM NONSPECIFIC T WAVE ABNORMALITY ABNORMAL ECG WHEN COMPARED WITH ECG OF 02-NOV-2016 01:59, T WAVE VARIATION Confirmed by MARTELL BULLARD MD ([id number]) on 03/19/2018 11:09:06 AM Referred By: Confirmed By:MARTELL BULLARD MD
--- NOTE | 2018-03-19 12:01 | ECHO ---
Name: JESUSSHARMIN StoneJR. Exam:Adult Echocardiogram Study Date: 03/19/2018 07:58 AM Age: 42 yrs Reason For Study: Chest pain Height: 73 in Weight: 288 lb BSA: 2.5 m2 MMode/2D Measurements & Calculations IVSd: 1.2 cm Ao root diam: 3.0 cm LVIDd: 4.7 cm LA dimension: 3.2 cm LVIDs: 2.9 cm LVPWd: 1.3 cm EDV(Teich): 104.2 ml ESV(Teich): 32.8 ml Doppler Measurements & Calculations MV E max colton: 78.6 cm/sec TR max colton: 181.2 cm/sec MV A max coltno: 79.1 cm/sec TR max P.1 mmHg MV E/A: 0.99 MV dec time: 0.17 sec Med Peak E' Colton: 8.7 cm/sec PI Vmax: 119.4 cm/sec Med E/e': 9.0 Lat Peak E' Colton: 12.3 cm/sec Lat E/e': 6.4 Procedure A complete two-dimensional transthoracic echocardiogram was performed (2D, M-mode, Doppler and color flow Doppler). Left Ventricle The left ventricle is normal in size. There is mild concentric left ventricular hypertrophy. Left irene tricular systolic function is normal. Ejection Fraction = 65-70%. No regional wall motion abnormalities noted. Right Ventricle The right ventricle is normal size. The right ventricular systolic function is normal. Atria The left atrial size is normal. Right atrial size is normal. Mitral Valve The mitral valve is normal in structure and function. There is no mitral regurgitation noted. Tricuspid Valve The tricuspid valve is normal in structure and function. There is mild tricuspid regurgitation. Right ventricular systolic pressure is normal. Aortic Valve The aortic valve is normal in structure and function. No aortic regurgitation is present. Pulmonic Valve The pulmonic valve is not well visualized. Great Vessels The aortic root is normal size. Pericardium/Pleura There is no pericardial effusion. Interpretation Summary The left ventricle is normal in size. There is mild concentric left ventricular hypertrophy. Left ventricular systolic function is normal. No regional wall motion abnormalities noted. Ejection Fraction = 65-70%. The right ventricular systolic function is normal. The left atrial size is normal. Right atrial size is normal. There is mild tricuspid regurgitation. Right ventricular systolic pressure is normal. There is no pericardial effusion. Previous study is not available for comparison Main Damico MD 03/19/2018 12:01 PM
[2018-03-19] MEDS: FLUTICASONE PROP 0.05% 16 GM NASAL SPRAY NS SCH (12:33)
--- NOTE | 2018-03-19 13:13 | PN ---
Teaching Attending Note Name of Resident: Braden Oneil ATTENDING PHYSICIAN STATEMENT I saw and evaluated the patient. I reviewed the resident's note and discussed the case with the resident. I agree with the resident's findings and plan as documented. SUBJECTIVE: No fever or chills, no PC , no SOB . OBJECTIVE: NAD CV: RRR, no MRG, no JVD Lungs: CTAB Ext: no edema Assessment/Plan: 42 y/o man with h/o uncontrolled HTn, Asthma, ASHLEY, and chronic sinusitis who presented with few episodes of CP 1- Atypical CP : -stress test today - echo today - tele with no events 2- HTN urgency: - resume chlorthalidone - cont losartan (added here ) and home norvasc. - HR in 50s . avoid BB 3- Mild Rhabdo : dc IVF 4- Linden: resolved 5- Asthma, cont Nebs dsipo : if BP is better controlled, stress and echo are unremarkable , then he can go home today
[2018-03-19] MEDS: CHLORTHALIDONE 25 MG TABLET PO SCH (14:21)
--- NOTE | 2018-03-19 16:38 | PN ---
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 The patient has been experiencing intermittent predominantly non-exertional left sided chest pain with radiation to his left arm. He has good exercise tolerance in spite of exertional SOB and palpitation. He has no exertional chest pain. His BP was elevated with mild sinus tachycardia in ED. NM ruled out. No acute ECG changes (III and aVF flattening T waves). 03/19/18 The Stress test showed a small to moderate size area of inferior reversible mild ischemia form base to apex. EF 56% Echo Normal LV function Normal RV function No valve disease - Current Medication List Current Medications: Active Medications Albuterol Sulfate (Ventolin Hfa Inhaler -) 1 puff IH Q4H PRN PRN Reason: SHORTNESS OF BREATH Albuterol Sulfate (Ventolin Hfa Inhaler -) 2 puff IH Q4H PRN PRN Reason: SHORTNESS OF BREATH Last Admin: 03/17/18 21:37 Dose: 2 puff Amlodipine Besylate (Norvasc -) 5 mg PO DAILY [facility] Last Admin: 03/19/18 09:30 Dose: 5 mg Aspirin (Ecotrin -) 81 mg PO DAILY [facility] Last Admin: 03/19/18 09:29 Dose: 81 mg Budesonide (Pulmicort 0.5 Mg Nebulizer -) 1 amp NEB RBID [facility] Last Admin: 03/19/18 07:45 Dose: 1 amp Chlorthalidone (Hygroton -) 25 mg PO DAILY [facility] Enoxaparin Sodium (Lovenox -) 40 mg SQ DAILY [facility] Last Admin: 03/19/18 09:30 Dose: 40 mg Fluticasone Propionate (Flonase -) 2 spray NS DAILY [facility] Last Admin: 03/18/18 13:48 Dose: 2 sprays Losartan Potassium (Cozaar -) 50 mg PO DAILY [facility] Last Admin: 03/19/18 09:30 Dose: 50 mg Montelukast Sodium (Singulair -) 10 mg PO HS [facility] Last Admin: 03/18/18 21:32 Dose: 10 mg - Objective Vital Signs: Vital Signs Temperature 98.5 F 03/19/18 13:50 Pulse Rate 84 03/19/18 13:50 Respiratory Rate 15 03/19/18 13:50 Blood Pressure 132/92 03/19/18 13:50 O2 Sat by Pulse Oximetry (%) 96 03/19/18 08:45 Constitutional: Yes: Well Nourished HENT: Yes: WNL Neck: Yes: WNL Cardiovascular: Yes: Regular Rate and Rhythm (No Murmur) Respiratory: Yes: CTA Bilaterally Gastrointestinal: Yes: Normal Bowel Sounds Extremities: Yes: WNL Edema: No Neurological: Yes: Alert, Oriented (Non focal) Labs: CBC, BMP 03/18/18 05:30 03/19/18 05:30 Assessment/Plan 42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 The patient has been experiencing intermittent predominantly non-exertional left sided chest pain with radiation to his left arm. He has good exercise tolerance in spite of exertional SOB and palpitation. He has no exertional chest pain. His BP was elevated with mild sinus tachycardia in ED. NM ruled out. No acute ECG changes (III and aVF flattening T waves). 03/19/18 The Stress test showed a small to moderate size area of inferior reversible mild ischemia form base to apex. EF 56% Echo Normal LV function Normal RV function No valve disease Given the chest pain complaint and the above nuclear stress test findings, will arrange for transfer to [facility] for a cardiac cath.
[2018-03-19] MEDS: metoPROLOL SUCCINATE 25 MG TAB.SR.24H (FP) PO SCH (18:32)
[2018-03-19] MEDS ORDERED: ATORVASTATIN CA 40 MG TABLET (FP) PO SCH (22:00)
[2018-03-19] MEDS: MONTELUKAST NA 10 MG TABLET PO SCH (22:10)
[2018-03-20 06:12] LABS: HEMATOCRIT 39.9 % (35.4-49); HEMOGLOBIN 13.2 GM/dL (11.7-16.9); MCH 28.1 pg (25.7-33.7); MCHC 33.1 g/dl (32.0-35.9); MEAN CELL VOLUME 84.8 fl (80-96); PLATELET COUNT 289 K/MM3 (134-434); RBC 4.71 M/mm3 (4.00-5.60); RDW 13.4 % (11.9-15.9); WHITE BLOOD COUNT 5.9 K/mm3 (4.0-10.0)
[2018-03-20 06:52] LABS: ANION GAP 6 MMOL/L (8-16); BLOOD UREA NITROGEN 13 mg/dL (7-18); CALCIUM 8.4 mg/dL (8.5-10.1); CHLORIDE 104 mmol/L (98-107); CO2 30 mmol/L (21-32); CREATININE 1.3 mg/dL (0.55-1.3); GLUCOSE,RANDOM 115 mg/dL (74-106); POTASSIUM 3.5 mmol/L (3.5-5.1); SODIUM 140 mmol/L (136-145)
[2018-03-20] MEDS ORDERED: PT OWN MED DRAWER 7, Y5N ONE ×2 (07:39→09:48)
[2018-03-20] MEDS: BUDESONIDE 0.5 MG/2 ML INH SUSP VIAL NEB SCH (07:45)
[2018-03-20] MEDS: metoPROLOL SUCCINATE 25 MG TAB.SR.24H (FP) PO SCH (09:53)
[2018-03-20] MEDS: ASPIRIN COATED 81 MG TABLET.EC PO SCH (09:53)
[2018-03-20] MEDS: ENOXAPARIN NA (PORCINE) 40 MG/0.4 ML DISP.SYRIN SQ SCH (09:53)
[2018-03-20] MEDS: LOSARTAN POTASSIUM 50 MG TABLET (FP) PO SCH (09:53)
[2018-03-20] MEDS: amLODIPine BESYLATE 5 MG TABLET (FP) PO SCH (09:53)
[2018-03-20] MEDS: FLUTICASONE PROP 0.05% 16 GM NASAL SPRAY NS SCH (09:54)
[2018-03-20] MEDS: CHLORTHALIDONE 25 MG TABLET PO SCH (09:54)
--- NOTE | 2018-03-20 09:54 | PN ---
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 The patient has been experiencing intermittent predominantly non-exertional left sided chest pain with radiation to his left arm. He has good exercise tolerance in spite of exertional SOB and palpitation. He has no exertional chest pain. His BP was elevated with mild sinus tachycardia in ED. NV ruled out. No acute ECG changes (III and aVF flattening T waves). 03/19/18 The Stress test showed a small to moderate size area of inferior reversible mild ischemia form base to apex. EF 56% Echo Normal LV function Normal RV function No valve disease - Current Medication List Current Medications: Active Medications Albuterol Sulfate (Ventolin Hfa Inhaler -) 1 puff IH Q4H PRN PRN Reason: SHORTNESS OF BREATH Albuterol Sulfate (Ventolin Hfa Inhaler -) 2 puff IH Q4H PRN PRN Reason: SHORTNESS OF BREATH Last Admin: 03/17/18 21:37 Dose: 2 puff Amlodipine Besylate (Norvasc -) 5 mg PO DAILY [facility] Last Admin: 03/19/18 09:30 Dose: 5 mg Aspirin (Ecotrin -) 81 mg PO DAILY [facility] Last Admin: 03/19/18 09:29 Dose: 81 mg Atorvastatin Calcium (Lipitor -) 40 mg PO HS [facility] Last Admin: 03/19/18 22:10 Dose: 40 mg Budesonide (Pulmicort 0.5 Mg Nebulizer -) 1 amp NEB RBID [facility] Last Admin: 03/20/18 07:45 Dose: 1 amp Chlorthalidone (Hygroton -) 25 mg PO DAILY [facility] Last Admin: 03/19/18 14:21 Dose: 25 mg Enoxaparin Sodium (Lovenox -) 40 mg SQ DAILY [facility] Last Admin: 03/19/18 09:30 Dose: 40 mg Fluticasone Propionate (Flonase -) 2 spray NS DAILY [facility] Last Admin: 03/19/18 12:33 Dose: 2 sprays Losartan Potassium (Cozaar -) 50 mg PO DAILY [facility] Last Admin: 03/19/18 09:30 Dose: 50 mg Metoprolol Succinate (Toprol Xl -) 12.5 mg PO DAILY [facility] Last Admin: 03/19/18 18:32 Dose: 12.5 mg Montelukast Sodium (Singulair -) 10 mg PO HS [facility] Last Admin: 03/19/18 22:10 Dose: 10 mg - Objective Vital Signs: Vital Signs Temperature 97.6 F 03/20/18 02:00 Pulse Rate 56 L 03/20/18 02:00 Respiratory Rate 14 03/20/18 02:00 Blood Pressure 131/94 03/20/18 02:00 O2 Sat by Pulse Oximetry (%) 96 03/20/18 07:50 Constitutional: Yes: No Distress, Calm Eyes: Yes: Conjunctiva Clear, EOM Intact HENT: Yes: Atraumatic, Normocephalic Neck: Yes: Supple, Trachea Midline Cardiovascular: Yes: Regular Rate and Rhythm Respiratory: Yes: CTA Bilaterally Gastrointestinal: Yes: Normal Bowel Sounds, Soft Musculoskeletal: Yes: WNL Extremities: Yes: WNL Edema: No Peripheral Pulses WNL: Yes Labs: CBC, BMP 03/20/18 05:30 03/20/18 05:30 Assessment/Plan 42 year-old [employer] with a PMHx of HTN, 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 The patient has been experiencing intermittent predominantly non-exertional left sided chest pain with radiation to his left arm. He has good exercise tolerance in spite of exertional SOB and palpitation. He has no exertional chest pain. His BP was elevated with mild sinus tachycardia in ED. NV ruled out. No acute ECG changes (III and aVF flattening T waves). 03/19/18 The Stress test showed a small to moderate size area of inferior reversible mild ischemia form base to apex. EF 56% Echo Normal LV function Normal RV function No valve disease Plan: continue current medications transfer to [facility] for cardiac catheterization poss PCI today.
[2018-03-20] MEDS ORDERED: methylPREDNISolone NA SUCC 40 MG/1 ML VIAL IVPUSH ONE (12:15)
[2018-03-20 13:50] VITALS: BP 131/92; PULSE 64
[2018-03-20 13:55] VITALS: TEMP 99.2
--- NOTE | 2018-03-20 13:59 | PN ---
Teaching Attending Note Name of Resident: Braden Oneil ATTENDING PHYSICIAN STATEMENT I saw and evaluated the patient. I reviewed the resident's note and discussed the case with the resident. I agree with the resident's findings and plan as documented. SUBJECTIVE: No fever or chills. No abd pain. nO CP , no SOB . a little anxious about transfer OBJECTIVE: NAD CV: RRR, no MRG, no JVD Lungs: CTAB Ext: no edema Assessment/Plan: 42 y/o man with h/o uncontrolled HTn, Asthma, ASHLEY, and chronic sinusitis who presented with few episodes of CP 1-CP, unstable angina, with positive stress test - cont BB , asa, Lipitor - cont BP control - Cath today at [facility] 2- HTN urgency: - rcont chlorthalidone, and norvasc ( home meds ) - cont metoprolol, losartan ( added here) 3- Asthma: stable . has a base line severe asthma. - spoke to his drum loader and unloader today and Recs are to premedicate him with solu- Medrol 60 q 6h x 2 before the cath and once after the cath ... - evaluate after cath for any sx 4- [place]: resolved Dispo : Tx to [facility] today
--- NOTE | 2018-03-20 15:11 | DS ---
Physical Exam: SUBJECTIVE: Patient seen and examined at bedside this morning. He denies any acute complaints overnight. Denies chest pain, or palpitations. Denies fevers, chills, headache, shortness of breath, cough, abdominal pain, nausea, vomiting, diarrhea. OBJECTIVE: Vital Signs Period Temp Pulse Resp BP Sys/Ramirez Pulse Ox Last 24 Hr 97.6 F-99.2 F 52-72 14-20 123-169/83-97 96-97 PHYSICAL EXAM GENERAL: The patient is awake, alert, and fully oriented, in no acute distress. HEAD: Normal with no signs of trauma. EYES: PERRL, extraocular movements intact, sclera anicteric, conjunctiva clear. ENT: Oropharynx clear without exudates, moist mucous membranes. NECK: Trachea midline, full range of motion, supple. LUNGS: Good inspirator effort and air entry. Breath sounds equal, clear to auscultation bilaterally. No wheezes, no crackles. No accessory muscle use. HEART: Regular rate and rhythm, S1, S2 auscultated without murmur, rub or gallop. ABDOMEN: Soft, nontender, nondistended. Normoactive bowel sounds, no guarding, no rebound tenderness. No hepatosplenomegaly. EXTREMITIES: 2+ radial and dorsalis pedis pulses, warm, well-perfused, no edema. NEUROLOGICAL: Cranial nerves II through XII grossly intact. Normal speech. PSYCH: Mod and affect appropriate upon my encounter this morning. SKIN: Warm, dry LABS Laboratory Results - last 24 hr 03/20/18 03/20/18 05:30 05:30 WBC 5.9 RBC 4.71 Hgb 13.2 Hct 39.9 MCV 84.8 MCH 28.1 MCHC 33.1 RDW 13.4 Plt Count 289 MPV 7.0 L Sodium 140 Potassium 3.5 Chloride 104 Carbon Dioxide 30 Anion Gap 6 L BUN 13 Creatinine 1.3 Creat Clearance w eGFR > 60 Random Glucose 115 H Calcium 8.4 L HOSPITAL COURSE: Date of Admission:03/17/18 Date of Discharge: 03/20/18 Patient is a 42 year old male with history of hypertension, obstructive seep apnea (using BiPAP at night), eosinophilic asthma (receiving infusion monoclonal antibody) presents with complaint of chest pain, shortness of breath , and palpitations. EKG showed normal sinus rhythm with nonspecific T wave abnormality. ECHO showed LV normal size, mild concentric LVH, systolic function normal with EF 65-70%. Normal RV function. Nuclear stress test showed small- moderate area reversible inferior (from base to apex) ischemia with EF 56 %. Home medications for hypertension and asthma reinstated. Per cardiology recommendations, patient was transferred to [facility] for cardiac catheterization. Discussed with PA at [facility] that as per his extern, he is to receive IV steroids before the procedure and additional dose after procedure. Patient discharged to continue medication regimen as per [facility] cardiology recommendations. Provided referral to follow up with Cardiology within one week of discharge. Minutes to complete discharge: 45 Discharge Summary Reason For Visit: STABLE ANGINA PECTORIS Condition: Stable - Instructions Diet, Activity, Other Instructions: Your Nuclear Stress Test was significant for a small- moderate area of the heart that is not receiving adequate amount of blood flow. Therefore, you are being transferred to [facility] for a cardiac catheterization to further evaluate and manage. Please make sure to follow up with your primary care physician (Dr. Eleazar Sandoval ) within two-three days of discharge form [facility] Follow up with your scientific artist within one week of discharge from [facility] . We are providing you with a referral to scientific artist Dr. Albrecht. at Discharge form [facility] you will be on the appropriate cardiac medications that might be different form the transfer medications . for [facility] staff : He received one dose of solumedrol ( 60 mg ) here at 12 :30pm. . he to be given another one in 6 hour before the procedure if possible ( unless cath is done earlier than that ) . after procedure he needs to get one more dose and evaluate for any symptoms Referrals: eleazar sandoval [Other] - 1 Week Calixto Albrecht MD [Staff Physician] - 1 Week Disposition: TRANSFER ACUTE CARE/OTHER HOSP - Home Medications Comprehensive Discharge Medication List: Ambulatory Orders Albuterol Sulfate Inhaler - [Ventolin HFA Inhaler -] 1 - 2 inh PO Q4H PRN #1 inhaler 11/02/16 Fluticasone Prop 0.05% Nasal [Flonase -] 1 - 2 spray NS DAILY 11/02/16 Mometasone/Formoterol [Dulera 200 Mcg/5 Mcg Inhaler] 2 inh IH BID 11/02/16 Montelukast Na [Singulair -] 10 mg PO HS 11/02/16 Reslizumab [Cinqair] 10 mg IV MONTHLY 03/09/17 Amlodipine Besylate [Norvasc -] 5 mg PO DAILY 03/17/18 Azelastine HCl 2 sprays NS BID 03/17/18 Budesonide [Pulmicort 0.5 mg Nebulizer -] 1 neb NEB BID 03/17/18 Chlorthalidone 25 mg PO DAILY 03/17/18 Aspirin Coated [Ecotrin -] 81 mg PO DAILY tablet.ec 03/19/18 Atorvastatin Ca [Lipitor] 40 mg PO HS 30 Days #30 tablet 03/19/18 Metoprolol Succinate [Toprol Xl -] 12.5 mg PO DAILY 30 Days #30 tab.sr.24h 03/19 Methylprednisolone Sod Succ [Solu-Medrol] 60 mg IV ONCE #1 vial 03/20/18 This patient is new to me today: No Emergency Visit: No Critical Care patient: Yes Total Critical Care Time (in minutes): 35 Critical Care Statement: The care of this patient involved high complexity decision making to prevent further life threatening deterioration of the patient 's condition and/or to evaluate & treat vital organ system(s) failure or risk of failure. - Discharge Referral Referred to [facility] No
[2018-03-20] MEDS ORDERED: methylPREDNISolone NA SUCC 40 MG/1 ML VIAL IVPUSH SCH (18:01)
== END 2018-03-20 14:16 | disposition short-term general hospital (02) | DRG 311 ==
LOC: JER 16:17 → JERBED 18:15 → J2W 21:06
PROVIDERS: ADMIT Internal Medicine; ATTEND Internal Medicine
DX: I20.0 Unstable angina (principal); N17.9 Acute kidney failure, unspecified; M62.82 Rhabdomyolysis; I16.0 Hypertensive urgency; J45.909 Unspecified asthma, uncomplicated; E66.9 Obesity, unspecified; Z68.38 Body mass index [BMI] 38.0-38.9, adult; G47.33 Obstructive sleep apnea (adult) (pediatric); R00.1 Bradycardia, unspecified; R07.89 Other chest pain
CPT/HCPCS: 36415; 71046-TC-FY; 78452-TC; 80048; 80053; 80061; 82550; 82553; 82803; 83036; 83721; 83735; 83880; 84100; 84484; 85025; 85027; 90688; 93005; 93010; 93017; 93306-TC; 94640; 94660; 99283-25; A9502; G0008; J7030

== ENCOUNTER 2019-07-06 21:10 | Emergency (ER) | payer OTHER ==
[2019-07-06 21:17] VITALS: BP 164/102; TEMP 98.2; BMI 36.3
--- NOTE | 2019-07-06 21:36 | PDOC ---
History of Present Illness - General Chief Complaint: Shortness of Breath Stated Complaint: ASTHMA Time Seen by Provider: 07/06/19 21:35 History Source: Patient Exam Limitations: No Limitations - History of Present Illness Initial Comments: 07/06/19 21:35 HPI: 44yo M pmh htn, hld, CAD (stress test 2018 resulting in cardiac cath), nasal polyps, asthma presenting with poor home O2Sat in setting of 2 months of asthma exacerbations with maintenance medication discontinuation. Patient was laying down for bed at home when he felt SOB, wheezing, took his O2Sat and noted it was 85%. Took his albuterol pump and called 911 at 8:30. Prior albuterol taken at 4:30 this afternoon. He endorses using his albuterol q4h for the past 2 months in the setting of a mills increase on his Dulara ($50 copay to $127) and discontinuation of his infusion. Denies chest pain, productive cough, fevers, chills, nausea, vomiting. Endorses diagnosis of PNA at urgent care in May with short course of steroids and amoxicillin. Took another course of steroids ending 06/28. Scheduled for follow up with Pulmonology in 2 weeks. Identifies winter as a trigger season for him. All: NKDA Meds: Amlodipine, Clorthalidone, Atorvastatin PMH: As above PSH: Cardiac Cath SHx: Denies toxic habits Past History - Past Medical History Allergies/Adverse Reactions: Allergies Allergy/AdvReac Type Severity Reaction Status Date / Time shellfish derived Allergy Verified 03/17/18 16:23 Home Medications: Ambulatory Orders Albuterol Sulfate Inhaler - [Ventolin HFA Inhaler -] 1 - 2 inh PO Q4H PRN #1 inhaler 11/02/16 Fluticasone Prop 0.05% Nasal [Flonase -] 1 - 2 spray NS DAILY 11/02/16 Mometasone/Formoterol [Dulera 200 Mcg/5 Mcg Inhaler] 2 inh IH BID 11/02/16 Montelukast Na [Singulair -] 10 mg PO HS 11/02/16 Reslizumab [Cinqair] 10 mg IV MONTHLY 03/09/17 Amlodipine Besylate [Norvasc -] 5 mg PO DAILY 03/17/18 Azelastine HCl 2 sprays NS BID 03/17/18 Budesonide [Pulmicort 0.5 mg Nebulizer -] 1 neb NEB BID 03/17/18 Chlorthalidone 25 mg PO DAILY 03/17/18 Aspirin Coated [Ecotrin -] 81 mg PO DAILY tablet.ec 03/19/18 Atorvastatin Ca [Lipitor] 40 mg PO HS 30 Days #30 tablet 03/19/18 Metoprolol Succinate [Toprol Xl -] 12.5 mg PO DAILY 30 Days #30 tab.sr.24h 03/19 Methylprednisolone Sod Succ [Solu-Medrol] 60 mg IV ONCE #1 vial 03/20/18 Albuterol 0.083% Nebulizer Sanaz [Ventolin 0.083% Nebulizer Soln -] 1 neb NEB Q6H #30 vial 07/07/19 predniSONE [Deltasone -] 60 mg PO DAILY #12 tablet 07/07/19 Asthma: Yes COPD: No HTN: Yes Hypercholesterolemia: Yes - Immunization History Immunization Up to Date: No - Psycho Social/Smoking Cessation Hx Smoking History: Never smoked Have you smoked in the past 12 months: No Hx Alcohol Use: No Drug/Substance Use Hx: No Substance Use Type: Alcohol Review of Systems - Review of Systems Able to Perform ROS?: Yes Is the patient limited Chinese proficient: Yes Constitutional: No: Chills, Diaphoresis, Fever, Weakness HEENTM: No: Nose Congestion, Throat Pain Respiratory: Yes: See HPI, Cough, Shortness of Breath, Other (poor O2Sat at home 85%). No: Orthopnea, Wheezing Cardiac (ROS): No: Chest Pain, Edema, Irregular Heart Rate, Lightheadedness, Palpitations, Syncope, Chest Tightness ABD/GI: No: Constipated, Diarrhea, Nausea, Poor Appetite, Poor Fluid Intake, Vomiting : No: Burning, Dysuria, Frequency Musculoskeletal: No: Muscle Pain, Muscle Weakness Integumentary: No: Bruising, Change in Color, Dryness, Erythema, Pruritus, Rash Neurological: No: Headache, Numbness, Tingling, Weakness Endocrine: No: Increased Thirst, Increased Urine Hematologic/Lymphatic: No: Anemia, Blood Clots, Easy Bleeding All Other Systems: Reviewed and Negative *Physical Exam - Vital Signs Last Vital Signs Temp Pulse Resp BP Pulse Ox 98.2 F 94 H 19 164/102 H 95 07/06/19 21:13 07/06/19 21:13 07/06/19 21:13 07/06/19 21:13 07/06/19 21:13 - Physical Exam 07/06/19 22:06 Vitals reviewed, AF, O2Sat 97% on 2L NC GEN: Well appearing, appears stated age, NAD, comfortable. AAOx3. HEENT: NCAT, EOMI, PERRL. Sclera anicteric, noninjected. No facial asymmetry. Moist mucous membranes. Normal voice. Trachea midline. CV: RRR, S1/S2, no murmurs / rubs / gallops appreciated. LUNG: +Diffuse wheezing, normal work of breathing. No accessory muscle use. Speaking full sentences. GI: Soft, NTND, +BS, no guarding, no rebound. No masses. Neg CVAT b/l. EXTREMITIES: 2+ distal pulses. No LE edema. No obvious deformities of all extremities. SKIN: Warm, dry, no rashes appreciated, non-jaundiced. PSYCH: Normal mood and affect. Cooperative and appropriate. NEURO: CN grossly intact. Moving all extremities well. Normal strength and sensation grossly. ED Treatment Course - LABORATORY CBC & Chemistry Diagram: 07/06/19 22:37 07/06/19 22:37 Medical Decision Making - Medical Decision Making 07/06/19 22:09 44yo M pmh htn, hld, CAD (stress test 2018 resulting in cardiac cath), nasal polyps, asthma presenting with poor home O2Sat in setting of 2 months of asthma exacerbations with maintenance medication discontinuation. - CBC, CMP, Mg, Phos, Cardiac Profile - CXR, EKG - Zee x3 - Solumedrol 07/06/19 22:33 - Patient taken off NC, O2Sat 96% 07/07/19 23:30 - CXR without infiltrate, effusion - Lab all within normal limits - EKG 07/07/19 00:30 - Patient reassessed, occasional wheeze Dispo: Home, Pulm Followup Discharge - Discharge Information Problems reviewed: Yes Clinical Impression/Diagnosis: Asthma exacerbation Qualifiers: Asthma severity: unspecified severity Asthma persistence: intermittent Qualified Code(s): J45.21 - Mild intermittent asthma with (acute) exacerbation Condition: Improved Disposition: HOME - Admission No - Additional Discharge Information Prescriptions: Albuterol 0.083% Nebulizer Sanaz [Ventolin 0.083% Nebulizer Soln -] 1 neb NEB Q6H #30 vial predniSONE [Deltasone -] 60 mg PO DAILY #12 tablet - Follow up/Referral Referrals: Cathy Leach [Primary Care Provider] - - Patient Discharge Instructions Patient Printed Discharge Instructions: DI for Asthma -- Adult Additional Instructions: Two medications have been seen to the pharmacy listed. Please pick these up and use them as directed. One is a nebulizer solution and the other a course of steroids. As discussed, please follow up with your Leather Scraper (earlier than your 2 week appointment if at all possible). Return to the ED for any further exacerbations / concerning symptoms. Concerning symptoms include: difficulty breathing, poor O2 saturation, fevers/ chills, productive cough. - Post Discharge Activity
[2019-07-06 21:43] VITALS: PULSE 98
[2019-07-06] MEDS ORDERED: ALBUTEROL SO4 2.5/IPRATROPIUM 0.5 INH SOL 3 ML VIAL.NEB. NEB ONE ×2 (21:57→22:31)
[2019-07-06] MEDS ORDERED: methylPREDNISolone NA SUCC 125 MG/2 ML VIAL IVPB ONE (21:57)
[2019-07-06] MEDS ORDERED: methylPREDNISolone NA SUCC 125 MG/2 ML VIAL ONE (22:32)
[2019-07-06] MEDS: ALBUTEROL SO4 2.5/IPRATROPIUM 0.5 INH SOL 3 ML VIAL.NEB. NEB SCH ×3 (22:47→23:19)
[2019-07-06 22:52] LABS: HEMATOCRIT 42.7 % (35.4-49); HEMOGLOBIN 14.1 GM/dL (11.7-16.9); MCH 28.4 pg (25.7-33.7); MCHC 33.1 g/dl (32.0-35.9); MEAN CELL VOLUME 85.8 fl (80-96); MEAN PLT VOLUME 6.8 fl (7.5-11.1); PLATELET COUNT 307 K/MM3 (134-434); RBC 4.98 M/mm3 (4.00-5.60); RDW 13.8 % (11.9-15.9)
--- NOTE | 2019-07-06 22:59 | PDOC ---
Documentation entered by Sharda Mahmood SCRIBE, acting as scribe for Tiki Beatty MD. Tiki Beatty MD: This documentation has been prepared by the michaelibe, Sharda Mahmood SCRIBE, under my direction and personally reviewed by me in its entirety. I confirm that the documentation accurately reflects all work, treatment, procedures, and medical decision making performed by me. Attending Attestation - Resident Resident Name: Adal Cuevas - ED Attending Attestation I have performed the following: I have examined & evaluated the patient, The case was reviewed & discussed with the resident, I agree w/resident's findings & plan, Exceptions are as noted - HPI HPI: 07/06/19 22:46 The patient is a 44-year-old male with a past medical history significant for HTN, HLD, CAD, and asthma who presents to the emergency department with shortness of breath. The patient reports the shortness of breath has been ongoing since April, without improvement. The patient reports symptoms of tightness and wheezing. The patient reports taking albuterol every 4 hours with mild relief. The patient reports he had an appointment with assistant sales manager on July 24, last follow up was over a year ago. Denies fever or chills. Allergies: Shellfish Social history: No reported use of tobacco or recreational drugs. Social use of alcohol PCP: Cathy Mosher. Space Officer: At [facility]. - Physicial Exam PE: 07/06/19 22:50 GENERAL: Awake, alert and oriented. The patient is in no acute distress. ENT: Ears normal, nares patent, oropharynx clear without exudates. Moist mucous membranes. NECK: Normal range of motion, supple, no nuchal rigidity LUNGS: +speaking in complete sentences, expiratory wheezing in all lung garrett, no use of accessory muscles. HEART: Regular rate and rhythm, normal S1 and S2 without murmurs, rubs or gallops. ABDOMEN: Soft, nontender, normoactive bowel sounds. No guarding, no rebound. No masses palpable. EXTREMITIES: Normal range of motion, no edema. NEUROLOGICAL: Answering all questions. Cranial nerves II through XII grossly intact. Normal speech. No focal neurological deficits. SKIN: Warm, Dry, normal turgor, no rashes or lesions noted. - Medical Decision Making 07/06/19 22:57 Mr. Noriega is a 44-year-old male with a history of severe asthma, previously on Dulera presenting to the emergency department secondary to asthma exacerbation. Patient's current asthma exacerbation began approximately in April or May. He was diagnosed with pneumonia in May, treated for this. Subsequent to that diagnosis and treatment for asthma exacerbation had an additional treatment for an asthma exacerbation approximately 2 weeks ago. Patient notes severe shortness of breath, dyspnea on exertion He denies chest pain He denies chest tightness He denies cough productive of sputum Patient has been using his albuterol MDI every 4 hours, with little relief Patient given nebs in the ER On examination he continues to have wheezing Supplemental O2 removed, O2 saturation 96% 07/06/19 22:58 Labs: 07/06/19 23:35 Laboratory Tests 07/06/19 07/06/19 07/06/19 22:37 22:37 22:37 WBC 7.0 Hgb 14.1 Hct 42.7 Plt Count 307 BUN 10.6 Creatinine 1.4 H Creatine Kinase 752 H Troponin I < 0.02 07/06/19 23:36 Chest x-ray: no infiltrate After treatment, pt feeling much better Able to ambulate without the feeling of breathlessness No chest pain Pt unwilling to stay in the hospital at this time Pt would rather be discharged to home He will f/u with ENT in 4 days He unfortunately still can not afford Dulera (I have checked GoodRx and it is more than what he can afford) Pt given strict precautions He will return immediately if he has shortness of breath or wheezing that does not improve with nebs Pt asked to call ems if he is having a severe asthma exacerbation Clinical impression: Asthma exacerbation
[2019-07-06 23:19] LABS: ALBUMIN 4.1 g/dl (3.4-5.0); BILIRUBIN,TOTAL 0.8 mg/dL (0.2-1); BLOOD UREA NITROGEN 10.6 mg/dL (7-18); CALCIUM 9.7 mg/dL (8.5-10.1); CREATININE 1.4 mg/dL (0.55-1.3); POTASSIUM 3.5 mmol/L (3.5-5.1); TOT PROT 7.3 g/dl (6.4-8.2)
== END 2019-07-07 01:34 | disposition home or self-care (01) ==
LOC: JER 21:10
PROC: 3E0F7GC Introduction of Other Therapeutic Substance into Respiratory Tract, Via Natural or Artificial Opening (ICD-10-PCS; principal; 2019-07-06)
PROC: 3E0F7GC Introduction of Other Therapeutic Substance into Respiratory Tract, Via Natural or Artificial Opening (ICD-10-PCS; 2019-07-06)
PROC: 3E0333Z Introduction of Anti-inflammatory into Peripheral Vein, Percutaneous Approach (ICD-10-PCS; 2019-07-06)
DX: J45.21 Mild intermittent asthma with (acute) exacerbation (principal); I25.10 Atherosclerotic heart disease of native coronary artery without angina pectoris; I10 Essential (primary) hypertension; Z98.61 Coronary angioplasty status; E78.5 Hyperlipidemia, unspecified; J34.89 Other specified disorders of nose and nasal sinuses; Z91.013 Allergy to seafood
CPT/HCPCS: 36415; 71046-TC-FY; 80053; 82550; 82553; 83735; 84100; 84484; 85027; 99283-25

== ENCOUNTER 2021-07-29 18:06 | Emergency (ER) | payer OTHER ==
[2021-07-29] MEDS ORDERED: SODIUM CHLORIDE 1,000 ML IV SCH (18:30)
[2021-07-29 18:52] VITALS: BMI 36.9
[2021-07-29 19:28] LABS: BASO % 1.1 % (0-2.0); EOS % 3.5 % (0-4.5); HEMATOCRIT 40.8 % (35.4-49); HEMOGLOBIN 13.8 GM/dL (11.7-16.9); LYMPH % 47.2 % (8-40); MCH 28.2 pg (25.7-33.7); MCHC 33.8 g/dl (32.0-35.9); MEAN CELL VOLUME 83.3 fl (80-96); MEAN PLT VOLUME 7.1 fl (7.5-11.1); MONO % 5.9 % (3.8-10.2); NEUT % 42.3 % (42.8-82.8); PLATELET COUNT 309 10^3/uL (134-434); RBC 4.89 M/mm3 (4.00-5.60); RDW 13.7 % (11.9-15.9); WHITE BLOOD COUNT 6.1 K/mm3 (4.0-10.0)
[2021-07-29 19:34] LABS: VENOUS BASE EXCESS 1.2 mmol/L (-2-2); VENOUS O2 SATURATION 86.6 % (70-80); VENOUS PCO2 43.1 mmHg (38-52); VENOUS PH 7.403 (7.310-7.410)
[2021-07-29 19:39] LABS: INR 1.03 (0.83-1.09); PROTHROMBIN TIME (PATIENT) 11.9 SEC (9.7-13.0)
[2021-07-29 19:42] LABS: ACTIVATED PTT 31.1 SECONDS (25.2-36.5)
[2021-07-29 19:49] LABS: CHLORIDE 99 mmol/L (98-107); SODIUM 136 mmol/L (136-145)
[2021-07-29 19:53] LABS: ANION GAP 8 MMOL/L (8-16); CO2 29 mmol/L (21-32)
[2021-07-29 19:54] LABS: BLOOD UREA NITROGEN 11.6 mg/dL (7-18); CALCIUM 9.5 mg/dL (8.5-10.1)
[2021-07-29] MEDS ORDERED: ALTEPLASE 100 MG/100 ML VIAL IVPB ONE ×2 (19:54)
[2021-07-29 19:55] LABS: GLUCOSE,RANDOM 230 mg/dL (74-106)
[2021-07-29 19:57] LABS: CREATININE 1.3 mg/dL (0.55-1.3); SGOT/AST 32 U/L (15-37); SGPT/ALT 29 U/L (13-61)
[2021-07-29 19:58] LABS: CHOLESTEROL 259 mg/dL (50-200); TOT PROT 7.4 g/dl (6.4-8.2)
[2021-07-29 19:59] LABS: LDL CHOLESTEROL (ONLY SJRH) 152 mg/dL (5-100); TRIGLYCERIDES 156 mg/dL (0-150)
[2021-07-29 20:00] LABS: ALK PHOS 64 U/L (45-117); BILIRUBIN,TOTAL 0.5 mg/dL (0.2-1)
[2021-07-29 20:01] LABS: HDL CHOLESTEROL 56 mg/dL (40-60)
[2021-07-29] MEDS ORDERED: ALTEPLASE 100MG 100 ML ONE (20:01)
[2021-07-29 21:42] VITALS: BP 135/95; PULSE 72
== END 2021-07-29 20:45 | disposition short-term general hospital (02) ==
LOC: JER 18:06
PROC: 3E033GC Introduction of Other Therapeutic Substance into Peripheral Vein, Percutaneous Approach (ICD-10-PCS; principal; 2021-07-29)
DX: I63.9 Cerebral infarction, unspecified (principal)
CPT/HCPCS: 36415; 70450-TC; 70496-TC; 70498-TC; 71045-TC-FY; 80053; 80061; 80307; 82010; 82550; 82553; 82803; 82962; 83036; 84484; 85025; 85610; 85730; 86850; 86900; 86901; 93005; 93010; 99291; J2997; Q9967

== ENCOUNTER 2021-11-15 10:10 | Emergency (ER) | payer OTHER ==
[2021-11-15 10:24] VITALS: BP 131/88; PULSE 88; TEMP 98.1; BMI 34.9
[2021-11-15] MEDS ORDERED: ALBUTEROL SO4 2.5/IPRATROPIUM 0.5 INH SOL 3 ML VIAL.NEB. NEB SCH (11:00)
== END 2021-11-15 12:57 | disposition home or self-care (01) ==
LOC: JER 10:10
PROC: 3E0F7GC Introduction of Other Therapeutic Substance into Respiratory Tract, Via Natural or Artificial Opening (ICD-10-PCS; principal; 2021-11-15)
DX: R05.1 Acute cough (principal)
CPT/HCPCS: 71046-TC-FY; 93005; 93010; 99284-25

== ENCOUNTER 2022-09-05 11:13 | Emergency (ER) | payer OTHER ==
[2022-09-05 11:34] VITALS: BMI 30.3
[2022-09-05] MEDS ORDERED: METHOCARBAMOL 500 MG TABLET PO ONE (12:18)
[2022-09-05] MEDS ORDERED: KETOROLAC TROMETHAMINE 60 MG/2 ML VIAL IM ONE (12:18)
[2022-09-05] MEDS ORDERED: LIDOCAINE 5% TOPICAL PATCH TP ONE (12:19)
[2022-09-05] MEDS ORDERED: METHOCARBAMOL 500 MG TABLET ONE ×2 (12:49→12:51)
[2022-09-05] MEDS ORDERED: KETOROLAC TROMETHAMINE 60 MG/2 ML VIAL ONE ×2 (12:49→12:51)
[2022-09-05] MEDS ORDERED: LIDOCAINE 5% TOPICAL PATCH ONE ×2 (12:49→12:52)
[2022-09-05] MEDS ORDERED: diazePAM 5 MG TABLET PO ONE (13:42)
[2022-09-05] MEDS ORDERED: diazePAM 5 MG TABLET ONE (13:46)
[2022-09-05 14:43] LABS: URINE APPEARANCE CLEAR; URINE BILIRUBIN NEGATIVE (NEGATIVE); URINE COLOR YELLOW; URINE GLUCOSE (UA) NEGATIVE (NEGATIVE); URINE KETONE NEGATIVE (NEGATIVE); URINE LEUK ESTERASE NEGATIVE (NEGATIVE); URINE NITRITE NEGATIVE (NEGATIVE); URINE PROTEIN NEGATIVE (NEGATIVE)
[2022-09-05 15:16] VITALS: BP 135/88; PULSE 68; RESP 18; TEMP 97.9
[2022-09-05] MEDS ORDERED: LIDOCAINE PATCH REMOVAL MC ONE (22:00)
== END 2022-09-05 14:30 | disposition home or self-care (01) ==
LOC: JER 11:13
PROC: 3E0233Z Introduction of Anti-inflammatory into Muscle, Percutaneous Approach (ICD-10-PCS; principal; 2022-09-05)
DX: M62.830 Muscle spasm of back (principal); M54.9 Dorsalgia, unspecified; X50.0XXA Overexertion from strenuous movement or load, initial encounter
CPT/HCPCS: 72100-TC-FY; 81003; 99284-25